=== PATIENT | male | born 1980 | race Caucasian/White ===

== ENCOUNTER → 2017-11-05 | Outpatient (CLI) | payer OTHER ==
[~2017-11-05] VITALS: Ht 210.8 cm; Wt 115.7 kg
[~2017-11-05] MED LIST: HYDROCODONE-AP1 EAC6 PO
--- NOTE | ~2017-11-05 | HPC ---
[facility] [place] [address] PAIN MANAGEMENT CONSULTATION Name: GAYATRI MONTES DE OCA JR Room #: REG [facility].#: [id number] Admission: 11/05/17 Attend Phys: Isra Petit DO Discharge: Date of : 78 Report #: [id number] THIS REPORT FOR: //name// CC: Jacey FELTON DATE OF SERVICE: 11/05/2017 REFERRING PHYSICIAN: Jacey Ramos M.D. CHIEF COMPLAINT: Coccydynia. HISTORY OF PRESENT ILLNESS: As you know, the patient is a 37-year-old male who has a longstanding history of ulcerative colitis requiring multiple surgical procedures. The last surgical procedure left the patient with coccydynia and rectal pain. There have been multiple evaluations with CT examinations but no clear etiology has been found. Despite continued evaluation, Dr. Ramos has been unable to determine the source of symptoms generation. He was referred to our clinic for possible ganglion impar block as this has been effective to treat coccydynic cocaine in the patient's Dr. Ramos's prior. The patient indicates today pain is continuous and rhythmic. He describes the pain as shooting, cramping, aching, sharp, stabbing, places current pain score at 8/10, daily average at 8/10, worst pain has been is 8/10. Nothing appears to exacerbate symptoms except for activities, nothing to date has improved his pain. He states he is nearly debilitated by this ongoing pain "stops him in his tracks." The patient states he is unable to work at his current job due to exacerbation of symptoms due to ongoing pain issues. He has been referred to our service, specifically to trial a ganglion impar blocks to determine if these would improve the patient's ongoing pain before the possibility of a coccygectomy is entertained. PAST MEDICAL HISTORY: Ulcerative colitis and ongoing pelvic pain. PAST SURGICAL HISTORY: 1. Robotic proctectomy with ileoanal J-pouch and diverting loop ileostomy. 2. Robotic lysis of adhesions. 3. Appendectomy. 4. Tonsillectomy. 5. Ileostomy takedown, small bowel resection and primary anastomosis. 6. Ventral hernia repair. SOCIAL HISTORY: The patient smokes half pack tobacco per day and has done so for 25 years. Denies IV or illicit drug use. Admits to occasional alcohol beverage. 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 He is attempting to work but having difficulty continuing work due to pain. He is not receiving workmens [address] [address] PAIN MANAGEMENT CONSULTATION Name: TAVONGAYATRI Cuevas Room #: REG [facility].#: [id number] Admission: 11/05/17 Attend Phys: Isra Petit DO Discharge: Date of : 79 Report #: [id number] compensation nor is he trying to obtain disability benefits. He is not in litigation in regards to his symptoms. He is unaccompanied today. REVIEW OF SYSTEMS: Positive for frequent diarrhea interspersed with constipation, rectal pain, coccydynia and head injury. All other review of systems negative per 12-point review of systems other than those listed in the history of present illness. Pain impact score 52/70 indicating severe interference of daily activities secondary to pain. ALLERGIES: No known drug allergies. CURRENT MEDICATIONS: Hydrocodone 5/325 one tab every 6 hours p.r.n. for pain. IMAGING DATA: 1. CT of the abdomen and pelvis obtained on 10/07/2017 shows status post colectomy, stable from prior exam. No evidence of abscess, perianastomotic fluid collections, small incisional hernia containing only fat unchanged from prior study. Borderline enlarged retroperitoneal mesenteric lymph nodes, unchanged from prior exam and right-sided nephrolithiasis, unobstructive. 2. CT abdomen and pelvis obtained 09/03/2017, status post total colectomy, omental fat containing umbilical hernia, nonobstructing right renal stone, stable shotty mesenteric retroperitoneal and pelvic lymph nodes. 3. CT abdomen and pelvis obtained 05/21/2017 shows a near total resolution of previously seen fluid collection abutting the anastomosis of the small bowel and rectum, probable hepatic steatosis. PHYSICAL EXAMINATION: VITAL SIGNS: Blood pressure 126/79, pulse 100, respiratory rate 20 and unlabored. The patient is 97% on room air, height 6 feet 1 inch tall, weight 255 pounds and BMI calculated 33.7. GENERAL: Well-developed, well-nourished, well-hydrated, 37-year-old male. He appears his stated age, placing current pain score at around 8/10. HEENT: Normocephalic and atraumatic. Pupils equal, round and reactive to light. Extraocular muscles are intact. Sclerae nonicteric without injection. NEUROLOGICAL: Cranial nerves 2 through 12 grossly intact. Speech is fluent. The patient deemed an excellent historian. LUNGS: Clear. No wheeze, rhonchi or rales. CARDIOVASCULAR: Regular. No appreciable gallop or rub. ABDOMEN: Soft, nontender and nondistended. Normoactive bowel sounds. EXTREMITIES: Show no clubbing, no cyanosis and no edema. MUSCULOSKELETAL: There is palpatory tenderness over the coccyx area. Deep palpation area causes intensification of pain. There is also pain, located between the coccyx and the rectum. Deep pressure in this area causes no change in overall pain, no muscle spasming noted and no changes in skin color or [facility] [address] [place] [address] PAIN MANAGEMENT CONSULTATION Name: CRISTHIANGAYATRI Cuevas Room #: REG [facility]#: [id number] Admission: 11/05/17 Attend Phys: Isra Petit DO Discharge: Date of : 79 Report #: [id number] texture. Seated straight leg raising negative. Supine straight leg raising negative. Daniel's test negative. Muscle bulk and tone equal and symmetrical in lower extremities. Ankle clonus negative. Babinski is negative, intact to light touch from L1 through S2 dermatomes. ASSESSMENT: 1. Coccydynia. 2. Chronic rectal pain. PLAN: 1. The patient has been referred to our service by his colorectal surgeon for evaluation for rectal pain. The pain the patient is experiencing at present appears to be directly overlying the coccyx and perineal area. Does not appear to be involving directly the rectum. We discussed with the patient the findings from the CT examination, which showed no changes in the area that would be concerning for any new pathology. I have had experienced with individuals. I have had a fairly extensive surgery and rectal anastomosis with chronic coccydynia pain that has been alleviated to a great degree by ganglion impar blocks. The patient was referred to our clinic specifically for ganglion impar blocks and to discuss other treatment options for pain in the area. We discussed with the patient the following possible treatment options. The patient indicates that he is concerned about taking long-term opioids but does find efficacy with their use. He is concerned that "eating hydrocodone, all day every day" could lead to issues of addiction. He is quite concerned about this and voiced this at least 3 times during our conversation. He is looking for resolution of symptoms. The most rapid way possible as he does need to return to work as he is becoming financially strapped due to the lack of work secondary to ongoing pain. 2. We discussed with the patient that a ganglion impar blocks have shown efficacy with a coccyx and rectal pain in the past. The block of the ganglion impar tends to improve pain generated from the pelvic floor and coccyx area. This is done by blocking the sympathetic drive from the ganglion impar. This could lead to improvement in symptoms, allowing the patient to return to normal function. A typical response to this can be anywhere from a couple days improvement all the way out to months' at a time. Our experience has been anecdotal from other individual suffering from similar problems and this has been an effective treatment option. We discussed the continuation of opioids, though the patient is quite concerned about the use and I do concur with the patient in regards to this. He is a 29-year-old male on increasing the opioid medications, which have a strong potential for addiction in the very near future. Opioids themselves are not necessarily a medication that is benign in nature. The side effects of these medications and the addiction potential are fairly significant with this therapy. I do not recommend this for long-term treatment. 3. We did discuss possibility of belladonna opium suppositories. This could lead to increase analgesia at the local site of pain. The patient was adamant [address] [address] PAIN MANAGEMENT CONSULTATION Name: GAYATRI MONTES DE OCA JR Room #: [facility].#: [id number] Admission: 11/05/17 Attend Phys: Isra E. Damaso, DO Discharge: Date of : 79 Report #: [id number] that he would not be willing to utilize a suppository for ongoing pain. He indicates that this is not an option in his case. 4. We did discuss the possibility of evaluation from a pelvic floor musculature standpoint. This will be done with a professional well versed at the pelvic floor and this could be through physical therapy with an effort at controlling potential muscle spasms of the pelvic floor itself. The patient states he is not willing to undergo this type of treatment as he is unwilling to allow individuals to palpate the pelvic floor through the rectum, which is the only way to effect pelvic floor manipulation. The patient is adamant, he will not allow this to occur as he is concerned about his surgeries and possible complications. 5. The patient was provided refill prescription of hydrocodone 5/325 one tab every 6 hours p.r.n. for pain, I have given the patient #120 one month worth of medication. We have provided this medication to continue analgesic benefit as the patient is going to try to return to work. We are providing this over the next month, so that we can trial the ganglion impar blocks to determine if they are effective and adjust medication therapy is necessary. We are hopeful to have the patient off these medications quickly. 6. The patient was advised that third constitution party payer restrictions require that authorization be obtained before we can move forward with a ganglion impar block. We will begin the process of approvals and once this has been achieved, we will have the patient return to undergo first in a series of ganglion impar blocks in hopes of improving coccydynia and perineal pain. 7. We wish to thank Dr. Ramos for the referral of patient to our clinic. We will keep you apprised of his response to treatment as we address his coccydynic and perineal pain. Again, we wish to thank you for the opportunity to see this patient in consultation. <ELECTRONICALLY SIGNED> By: Isra Petit DO 11/13/17 1216 [id number] Isra Petit DO /nt
[2017-11-05 12:32] VITALS: BP 126/79
== END ==
LOC: PAIN 06:52
DX: M53.3 Sacrococcygeal disorders, not elsewhere classified (principal); K62.89 Other specified diseases of anus and rectum; K51.90 Ulcerative colitis, unspecified, without complications

== ENCOUNTER → 2017-11-26 | Outpatient (CLI) | payer OTHER ==
[~2017-11-26] VITALS: Ht 185.4 cm; Wt 114.3 kg
[~2017-11-26] MED LIST changes: +BELLADONNA-OPI1 EACH RECTAL; +HYDROCODON-ACE1 EAC5 PO; +HYDROCODONE-AP1 EA11 PO; +HYSINGLA ER30 MG PO
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
[2017-11-26 08:45] VITALS: BP 132/95
== END ==
LOC: PAIN 11-13 11:11
DX: M53.3 Sacrococcygeal disorders, not elsewhere classified (principal); K62.89 Other specified diseases of anus and rectum; Z87.19 Personal history of other diseases of the digestive system

== ENCOUNTER → 2017-12-24 | Outpatient (CLI) | payer OTHER ==
[~2017-12-24] VITALS: Ht 185.4 cm; Wt 114.9 kg
--- NOTE | ~2017-12-24 | HPC ---
[facility] [place] [address] PAIN MANAGEMENT CONSULTATION Name: GAYATRI MONTES DE OCA JR Room #: REG [facility].#: [id number] Admission: 12/24/17 Attend Phys: Isra Petit DO Discharge: Date of : 79 Report #: [id number] THIS REPORT FOR: //name// CC: Jacey GRANADOS DATE OF SERVICE: 12/24/2017 REFERRING PHYSICIAN: Jacey Ramos MD PRIMARY CARE: ROBERT[facility] oPlk CHIEF COMPLAINT: Coccydynia and rectal pain. HISTORY OF PRESENT ILLNESS: As you know, the patient is a 37-year-old male with longstanding history of ulcerative colitis, requiring multiple surgical procedures. Last procedure left the patient with coccydynia and rectal pain. We saw the patient per the request of Dr. Jacey Ramos for a possible ganglion impar block. This was not approved by the patient's third democrat payer. They indicated this was an experimental procedure. We have seen great efficacy with these injections in the past, but unfortunately, this patient was not allowed to trial this type of injection. We subsequently started the patient on medication management in the form of hydrocodone and belladonna. The patient is reporting improvement in symptoms with this medication, reporting pain score about 6/10. States pain is exacerbated with activity and walking, improves with medications. He describes the pain as stabbing in sensation. He returns today in followup visit for medication management. He is denying any side effects with the therapy at this time. ALLERGIES: No known drug allergies. CURRENT MEDICATIONS: Hydrocodone 7.5/325 four times a day, belladonna opium 16.2/30 mg 1 per rectum per day, Hysingla ER 30 mg 1 tab per day. SOCIAL HISTORY: The patient continues to smoke half pack tobacco per day and has done so for 25 years. Denies IV or illicit drug use. Has an occasional alcohol beverage. 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 IMAGING: No new imaging available. PQRS: The patient does not suffer from osteoarthritis or rheumatoid arthritis. His pain intensity is 6/10 involving rectum and coccyx area. He is not a fall risk. He does not use a device for ambulation. He is not on blood thinners. [address] [address] PAIN MANAGEMENT CONSULTATION Name: GAYATRI MONTES DE OCA JR [facility] [id number] Admission: 12/24/17 Attend Phys: Isra Petit DO Discharge: Date of : 79 Report #: [id number] He does not have a history of hypertension. He has not been on opioid therapy for greater than 6 weeks with our services. He has signed an opioid contract. Risk assessment tool is low for opioid abuse. Functional assessment tool reveals 32/70, moderate interference of daily activities secondary to pain. PHYSICAL EXAMINATION: VITAL SIGNS: Blood pressure 123/73, pulse 91, respiratory rate 16, unlabored. The patient is 95% on room air. Height 6 feet 1 inch tall, weight 253.4 pounds, BMI calculated 33.4. GENERAL: Well-developed, well-nourished, well-hydrated 37-year-old male. He appears stated age. He is placing pain score today 6/10. HEENT: Normocephalic, atraumatic. Pupils equal, round, reactive to light. EXTREMITIES: Show no clubbing, no cyanosis, no edema. MUSCULOSKELETAL: There is palpatory tenderness over the coccyx area. No rash, lesions or ulcerations. No skin color changes. Pain is elicited with standing and walking distances as well as climbing a single step stool. Seated straight leg raising negative. Supine straight leg raising negative. Daniel's test negative. ASSESSMENT: 1. Rectal pain. 2. Chronic coccydynia. 3. Chronic intractable pain. PLAN: 1. The patient returns today in followup visit having received some benefit with the belladonna in combination with hydrocodone. The patient is requesting refill on medications as he does find benefit with their use. He states that increasing activity at work, standing and walking long distances exacerbates his symptoms. He returns today in followup visit for refills of medication for the next month. 2. The patient was provided prescription of Hysingla ER 30 mg dose 1 tab p.o. q. day, given the patient #30 tablets, no refills. I did provide the patient with a coupon to reduce the cost of the Hysingla. 3. The patient was provided a prescription of hydrocodone 7.5/325 one tab p.o. q. 6 hours p.r.n. for pain, #120, releases of today only, no refills. 4. The patient was provided prescription of belladonna opium suppositories, 1 suppository per day, 16.2 mg/30 mg, #30, no refills. 5. We will see the patient back in followup visit in 1 month. At that time, discuss the efficacy of the medication and determine if continuation of this therapy would be recommended. <ELECTRONICALLY SIGNED> By: Isra Petit DO 01/01/18 1131 [id number] Isra Petit DO /linn
[2017-12-24 08:23] VITALS: BP 123/73
== END ==
LOC: PAIN 07:09
DX: K62.89 Other specified diseases of anus and rectum (principal); G89.29 Other chronic pain; M53.3 Sacrococcygeal disorders, not elsewhere classified; F17.200 Nicotine dependence, unspecified, uncomplicated

== ENCOUNTER → 2018-01-14 | Outpatient (CLI) | payer OTHER ==
[~2018-01-14] VITALS: Ht 185.4 cm; Wt 112.9 kg
--- NOTE | ~2018-01-14 | HPC ---
[facility] [place] [address] [address] PAIN MANAGEMENT CONSULTATION Name: GAYATRI MONTES DE OCA JR [id number] Admission: 01/14/18 Attend Phys: Isra Petit DO Discharge: Date of : 78 Report #: [id number] THIS REPORT FOR: //name// CC: Jacey EFLTON DATE OF SERVICE: 01/14/2018 CHIEF COMPLAINT: Coccydynia and rectal pain. HISTORY OF PRESENT ILLNESS: As you know, the patient is a 37-year-old male with longstanding history of ulcerative colitis requiring multiple surgical procedures. Last procedure left the patient unfortunately with ongoing coccydynia and perirectal pain. The patient sought evaluation and treatment through his colorectal surgeon and ultimately referred to our clinic to discuss options for interventional treatments. The patient was seen in consultation per the request of Dr. Ramos on 11/05/2017. At that time, we were requesting the patient undergo ganglion impar block. It was determined by his third republican payer that this was an experimental procedure. The patient was started on medication therapy in the form of Hysingla, hydrocodone and belladonna opium suppositories. The patient initially received good benefit with these medications, but unfortunately has noted lack of efficacy over the past couple of weeks. He is now taking hydrocodone consistently, he is taking his Hysingla consistently and utilizing the suppositories and despite these treatments, his pain now at a level of 9/10. The patient returns to discuss options for treatment. ALLERGIES: No known drug allergies. CURRENT MEDICATIONS: Opium belladonna once a day, hydrocodone 7.5/325 one tab every 6 hours, Hysingla ER 30 mg once a day. SOCIAL HISTORY: The patient continues to smoke half pack tobacco per day. He has done so for 25 years. Denies IV or illicit drug use. Admits to occasional alcohol beverage. 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 He is working, not receiving workmen's compensation. He is unaccompanied at today's visit. IMAGING: No imaging available. PQRS: The patient does not have osteoarthritis, rheumatoid arthritis. His pain score today is at 9/10. He is not a fall risk, has not had a fall in 3 months. He is not on blood thinners. He is on opioids, but not under contract. He does not have a history of hypertension. He is a smoker. He has a low opioid abuse potential. Pain assessment tool is now 45/70. [place] [address] PAIN MANAGEMENT CONSULTATION Name: GAYATRI MONTES DE OCA JR [facility]: [facility] [id number] Admission: 01/14/18 Attend Phys: Isra Petit DO Discharge: Date of : 79 Report #: [id number] PHYSICAL EXAMINATION: VITAL SIGNS: Blood pressure 144/92, pulse 85, respiratory rate 16 and unlabored. The patient is 97% on room air, height 6 feet 1 inch tall, weight 248.8 pounds, BMI calculated at 32.8. GENERAL: Well-developed, well-nourished, well-hydrated 37-year-old male appearing stated age, placing pain score anywhere from 4-9/10. HEENT: Normocephalic, atraumatic. Pupils equal, round, reactive to light. Extraocular muscles are intact. EXTREMITIES: Show no clubbing, no cyanosis, no edema. MUSCULOSKELETAL: Seated straight leg raising negative, supine straight leg raising negative. ARMIN test negative. There is palpatory tenderness over the coccyx area. ASSESSMENT: 1. Coccydynia. 2. Rectal pain. 3. Chronic intractable pain. PLAN: 1. The patient returns today in followup visit, describing increasing pain despite escalating doses of opioids. I am very concerned with a 37-year-old male patient that he has beginning to experience tolerance to opioid medications. The fact that he is noticing no improvement despite escalating doses of medications is quite concerning. The patient states he is taking his medications appropriately and despite this his pain has continued. We will make adjustments in medication today, but have discussed the possibility the patient may have to look toward surgical options as his third republican payer will not approve the requested injection that his colorectal surgeon actually sent the patient here for us to perform. 2. The patient will be continued on Hysingla at 30 mg dose 1 tab p.o. q.a.m. I have given the patient #30 releases of today, 4 weeks from today, 8 weeks from today, 3 months' worth of medication. 3. The patient was provided a prescription for belladonna opium suppositories. I have given the patient 1 suppository per day. He is given a prescription of #30, releases of today, 4 weeks from today, 8 weeks from today. I did offer to the patient if he can find a 3-month prescription it may be more cost effective. I did offer the patient the prescription for #90 of the belladonna and opium suppositories if this is a cheaper alternative for the patient. 4. The patient will have escalation in his hydrocodone from 7.5 to 10/325, the top dose of hydrocodone, this places the patient now at 70 morphine equivalents a day, reaching the top level recommended by CDC. I am very concerned that this patient will ultimately show tolerance to this higher level of opioids and thus they will be become ineffective. 5. I have discussed with the patient there is a strong possibility he may have to look toward surgical options such as a coccygectomy to assist in his coccydynic pain. This will not improve his rectal pain. We also discussed he [facility] [address] [place] [address] PAIN MANAGEMENT CONSULTATION Name: GAYATRI MONTES DE OCA JR Room #: [facility] [id number] Admission: 01/14/18 Attend Phys: Isra Petit DO Discharge: Date of : 78 Report #: [id number] could look towards contacting his third republican payer and requesting the ganglion impar block. I did advise the patient his third republican payer indicates this is an experimental procedure, which is quite interesting as it has been used for years for coccydynia and has never been indicated as an experimental procedure. It is unfortunate that the third republican payer in this case has not reviewed the available literature in regards to this treatment option for chronic coccydynia and rectal pain. The patient can contact his third republican payer and discuss this with them. We have made attempts to have this approved and have been rejected. I have also requested the patient to follow up with his colorectal surgeon as I believe this is the reason why the patient was sent to our clinic. He was to trial these injections and we have not been able to do so due to restrictions, not from a medical standpoint, but from an insurance standpoint. 6. The patient will return to our clinic in about 3 months unless he can achieve authorization to undergo the requested ganglion impar block. <ELECTRONICALLY SIGNED> By: Isra Petit DO 01/15/18 0717 1417 14 Isra Petit DO /nt
[2018-01-14 09:32] VITALS: BP 144/92
== END ==
LOC: PAIN 07:02
DX: M53.3 Sacrococcygeal disorders, not elsewhere classified (principal); K62.89 Other specified diseases of anus and rectum; G89.29 Other chronic pain

== ENCOUNTER → 2018-07-15 | Outpatient (CLI) | payer OTHER ==
[~2018-07-15] VITALS: Ht 185.4 cm; Wt 110.9 kg
--- NOTE | ~2018-07-15 | HPC ---
[facility] [place] [address] PAIN MANAGEMENT CONSULTATION Name: GAYATRI MONTES DE OCA JR Room #: REG [facility] Khari#: [id number] Admission: 07/15/18 Attend Phys: Isra Petit DO Discharge: Date of : 79 Report #: [id number] THIS REPORT FOR: //name// CC: Jacey FELTON Physician staff DATE OF SERVICE: 07/15/2018 REFERRING PHYSICIAN: Jacey Ramos M.D. CHIEF COMPLAINT: Coccydynia/rectal pain. HISTORY OF PRESENT ILLNESS: As you know, the patient is a very pleasant 37-year-old male with longstanding history of ulcerative colitis, requiring multiple surgical procedures. Last procedure unfortunately left the patient with coccydynia and perirectal pain. He has been started on medication management in the form of Hysingla and hydrocodone for pain control. 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 He returns requesting refill on medications. He is denying any side effects of medication except for some issues of GI that he is dealing with vaot-iiy-dttgven medications. He returns today in followup visit requesting a refill on medications, denying any other side effects to the therapy. He states that the medications do provide benefit of about 60%-70%. We attempted originally to have the patient undergo a ganglion impar blocks per the request of his colorectal surgeon, but unfortunately this was not approved by his insurer. He continues on medication in the form of Hysingla and hydrocodone. ALLERGIES: No known drug allergies. CURRENT MEDICATIONS: Hysingla 30 mg once a day, hydrocodone 10/325 one tab p.o. q. 6 hours p.r.n. for pain. SOCIAL HISTORY: The patient continues to smoke half pack tobacco per day and has done so for 25-1/2 years. Denies IV or illicit drug use. Admits to occasional alcohol beverage. 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 IMAGING DATA: No new imaging available. PHYSICAL EXAMINATION: VITAL SIGNS: Blood pressure 135/89, pulse 86 and respiratory rate 16 and unlabored. The patient is 98% on room air, height 6 feet 1 inch tall, weight 244.4 pounds and BMI calculated 32.3. GENERAL: Well-developed, well-nourished and well-hydrated 37-[place] [address] PAIN MANAGEMENT CONSULTATION Name: TAVONGAYATRI Mason LEHMAN Room #: REG [facility]#: [id number] Admission: 07/15/18 Attend Phys: Isra Petit DO Discharge: Date of : 79 Report #: [id number] appearing stated age, placing current pain score at approximately 6/10. HEENT: Normocephalic and atraumatic. Pupils equal, round and reactive to light. EXTREMITIES: Show no clubbing, no cyanosis and no edema. MUSCULOSKELETAL: There is some palpatory tenderness over the coccyx area. No tender points. Weightbearing causes minor change in the patient's perirectal pain and coccydynia. Seated position causes intensification of pain nor neurologic deficits noted in the lower extremities. ASSESSMENT: 1. Chronic coccydynia. 2. Chronic rectal pain. 3. Chronic intractable pain. 4. Opioid dependency. 5. Tobacco habituation. PLAN: 1. The patient has returned today in followup visit for medication management. He feels medications are working beneficially, providing about 60% improvement in overall symptoms. He has requested refill on medications at this time. He has been appropriate with his medication. We have done K-TRACS and MO-TRACS. There is no aberrant entries in the file. He appears to be filling his medications appropriately. He has requested refill of medications and we have agreed to provide 3 months' worth of therapy today. 2. The patient was provided prescription of Hysingla 30 mg dose 1 tab p.o. q.a.m., #30 releases of today, 4 weeks from today, 8 weeks from today, 3 months' worth of medication. 3. The patient was provided prescription of hydrocodone 10/325 one tab p.o. q. 6 hours p.r.n. for pain, #120, releases of today, 4 weeks from today, 8 weeks from today, 3 months' worth of medication. 4. We reviewed the fact that opiate medications are being used to provide analgesia adequate to support activities of daily living, not attempting to achieve a specific pain score on the 0-10 Visual Analog Scale. The current opiate medications are providing sufficient analgesia to allow the patient to participate in activities of daily living. The patient is not exhibiting any aberrant behavior suggestive of drug diversion. The patient is not having any adverse reactions to medications. The patient is not suffering from daytime somnolence or mental acuity changes. The patient is managing opiate-induced constipation with appropriate yhxl-sxp-thxrami agents and dietary considerations. The patient was counseled on concern for caution with operating a motor vehicle while using opiate medications. A physical exam was performed and the patient's functional status was evaluated. All patients with back pain were advised against the bed rest greater than 4 days and were advised to return to normal activities. Pain score assessment was noted and the treatment plan was reviewed with the patient. All current [facility] [address] [place] [address] PAIN MANAGEMENT CONSULTATION Name: GAYATRI MONTES DE OCA JR Room #: REG [facility]#: [id number] Admission: 07/15/18 Attend Phys: Isra Petit DO Discharge: Date of : 79 Report #: [id number] medications, both prescribed and OTC were reviewed and reconciled on the electronic medical record. Tobacco screening was accomplished and smoking cessation was advised when indicated. BMI was noted and diet/exercise modification was recommended for all patients following outside normal parameters. I reviewed with the patient today their responsibilities to safeguard prescription medications, reviewed their responsibility to utilize medications only as prescribed by the physician. They are to seek and receive pain medications only from 1 physician group ( [facility]). They are to use 1 pharmacy and keep the clinic informed if they change pharmacies. Their responsibilities include making followup visits in a timely fashion and to avoid abrupt discontinuation of medication usage. Their responsibilities further include bringing their medications (bottles from the pharmacy with residual pills) to the visit for possible confirmation of pill counts and the patient understands it is their responsibility to submit to random drug screens to ensure both that the medications prescribed are present, and that no other controlled substances are present. All prescriptions provided today were generated electronically. 5. The patient will submit to urine drug screen today. This is part of our screening process. The patient can find results in 1 week to 2 weeks. They will be available here at the clinic if he requests. We will review the findings. Again, this is part of our opioid monitoring process with opioid contracts. 6. The patient will return to our clinic in 3 months for medication therapy and discuss other options for treatment. <ELECTRONICALLY SIGNED> By: Isra Petit DO 07/17/18 0816 0848 [id number] Isra ePtit DO /nt
[2018-07-15 08:11] VITALS: BP 135/89
== END ==
LOC: PAIN 06:53
DX: M53.3 Sacrococcygeal disorders, not elsewhere classified (principal); G89.4 Chronic pain syndrome; F11.20 Opioid dependence, uncomplicated; F17.200 Nicotine dependence, unspecified, uncomplicated

== ENCOUNTER → 2018-10-15 | Outpatient (CLI) | payer OTHER ==
[~2018-10-15] VITALS: Ht 185.4 cm; Wt 109.8 kg
--- NOTE | ~2018-10-15 | HPC ---
[facility] [address] [address] PAIN MANAGEMENT CONSULTATION Name: GAYATRI MONTES DE OCA JR Room #: [facility].#: [id number] Admission: 10/15/18 Attend Phys: Isra Petit DO Discharge: Date of : 79 Report #: [id number] THIS REPORT FOR: //name// CC: Jacey FELTON Physician staff DATE OF SERVICE: 10/15/2018 CHIEF COMPLAINT: Coccydynia and rectal pain. HISTORY OF PRESENT ILLNESS: As you know, the patient is a 38-year-old male with longstanding history of ulcerative colitis requiring multiple surgical procedures. Last procedure unfortunately left the patient with coccydynia and perirectal pain. He has been started on medication management in the form of Hysingla along with the use of immediate release formulation hydrocodone for pain control. He states the combination of medications is working beneficially allowing him to go about his activities of daily living without significant pain interference. The patient travels significantly for his job and was recently in the [place] area where he attempted to receive refills of medication, was unable to do so due to state loss. Unfortunately, the patient will need to schedule his medication refills appropriately, so he can receive the medications here in the [place], [place] area. He returns today in followup visit requesting refill of medications. He is placing pain at around 6/10. He reports about 60% improvement in overall pain with medications. ALLERGIES: No known drug allergies. CURRENT MEDICATIONS: Hysingla 30 mg once a day, hydrocodone/acetaminophen 10/325 one tab every 6 hours p.r.n. for pain. SOCIAL HISTORY: The patient continues to smoke half a pack tobacco per day, has done so for 26 years. Denies IV or illicit drug use. Admits to occasional alcohol beverage. 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 IMAGING: No new imaging available. PHYSICAL EXAMINATION: VITAL SIGNS: Blood pressure 141/83, pulse 82, respiratory rate 16 and unlabored. The patient is 96% on room air, height 6 feet 1 inch tall, weight 242 pounds, BMI calculated 31.9. GENERAL: Well-developed, well-nourished, well-hydrated, 37-year-old male. He appears stated age, placing current pain score 6/10. HEENT: Normocephalic, atraumatic. Pupils equal, round, [place] [address] PAIN MANAGEMENT CONSULTATION Name: TAVONGAYATRI Cuevas Room #: REG [facility].#: [id number] Admission: 10/15/18 Attend Phys: Isra Petit DO Discharge: Date of : 79 Report #: [id number] EXTREMITIES: Show no clubbing, no cyanosis, no edema. MUSCULOSKELETAL: Palpatory tenderness over the coccyx area. Multiple tender points, no incisional changes noted. Weightbearing causes no change in overall perirectal pain or coccydynia. Seated position causes increase in overall pain, no neurologic deficits noted. ASSESSMENT: 1. Chronic coccydynia. 2. Chronic rectal pain. 3. Chronic intractable pain. 4. Opioid dependency. 5. Complicated medication management. 6. Tobacco habituation. PLAN: 1. The patient returns today in followup visit for medication management. He states medications are working beneficially for pain control, providing about 60% improvement in overall pain. Unfortunately, he has had some difficulty obtaining these medications and states where he has been traveling to work. I advised the patient, he will need to coordinate refill times to fit with his current work schedule as state laws vary on who will fill and who will not fill these medications. He will need to adjust his travel to accommodate for these issues. 2. The patient and I had a very long discussion today about tobacco use and its effect on chronic pain. I have advised the patient that there have been direct links between tobacco use and chronic pain facilitation. We recommend the patient discontinue this activity as quickly as possible. We have offered to the patient treatment options. He will consider these options. At present, he is not interested in discontinuing this activity. 3. The patient was provided a prescription of Hysingla 30 mg dose 1 tab per day. This was released today, 4 weeks from today, 8 weeks from today, 3 months' worth of medication. This totals 30 morphine equivalents a day. 4. The patient was provided prescription of hydrocodone 10/325 one tab p.o. q.6h. p.r.n. for pain, I have given the patient #120, releasing today, 4 weeks from today, 8 weeks from today. This totals to maximum of 40 morphine equivalents a day in combination with the Hysingla to 70 morphine equivalents a day, below CDC's recommended no more than 90 morphine equivalents. 5. We will see the patient back in followup visit in 3 months. At that time, we are hopeful we can adjust medications to a lower dose depending on CDC's recommended guidelines. <ELECTRONICALLY SIGNED> By: Isra Petit DO 10/21/18 1110 0801 1102 Isra Petit DO /nt
[2018-10-15 09:11] VITALS: BP 141/83
== END ==
LOC: PAIN 06:33
DX: M53.3 Sacrococcygeal disorders, not elsewhere classified (principal); G89.29 Other chronic pain; F17.200 Nicotine dependence, unspecified, uncomplicated; Z79.899 Other long term (current) drug therapy; Z79.891 Long term (current) use of opiate analgesic

== ENCOUNTER → 2019-01-07 | Outpatient (CLI) | payer OTHER ==
[~2019-01-07] VITALS: Ht 185.4 cm; Wt 115.8 kg
[2019-01-07 09:20] VITALS: BP 147/95
--- NOTE | 2019-01-07 09:35 | NUR ---
Pain Clinic Assessment: 1. History of Osteoarthritis: Not Applicable History of Rheumatoid Arthritis: Not Applicable 2. Height: 6 ft. 1 in. 185.4 cm. Weight: 255.2 lb. oz. 115.758 kg. Patient's BMI: 33.7 3. Vital Signs: BP: 147/95 Pulse: 82 Resp: 16 Temp: 02 Sat: 97 ECG Mon: 4. Pain Intensity: 7 5. Fall Risk: Dizziness: N Needs help standing or walking: N Fallen in the last 3 months: N Fall risk comments: 6. Patient on Blood Thinner: None 7. History of Hypertension: N 8. Opioid Therapy greater than 6 weeks: Y Opiate Contract Signed: 12/24/17 9. Risk Assessment Tool Provided: LOW RISK 0/3 10. Functional Assessment Tool: 11. Recreational Drug Use: Never Drug Type: Tobacco Use: Current Every Day Smoker Tobacco Type: Cigarettes Amount or Packs/day: 0.5 How Many Years: 20 Alcohol Use: No Frequency: Quant:
--- NOTE | 2019-01-08 08:34 | HPC ---
[facility] [address] [place] [address] PAIN MANAGEMENT CONSULTATION Name: GAYATRI MONTES DE OCA JR Room #: REG CATE Lucia#: [id number] Admission: 01/07/19 Attend Phys: Peyton Ceballos Discharge: Date of : 78 Report #: [id number] THIS REPORT FOR: //name// CC: Peyton FELTON Physician staff DATE OF SERVICE: 01/07/2019 CHIEF COMPLAINT: Coccydynia and rectal pain. HISTORY OF PRESENT ILLNESS: This is a 38-year-old male with a longstanding history of ulcerative colitis with surgery procedures that has left him with some perirectal pain and coccydynia. The patient tells me that the pain is worse when he is walking and carrying ladders, going up and down for his job. He tells me his pain today is 7/10, which is fairly average pain score. He tells me that Hysingla does work well. Occasionally, he can take 2 hydrocodone 10/325 a day but sometimes he requires up to 5 a day. 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 He denies any problems with constipation or daytime sleepiness. He does tell me that he will be having a hernia surgery on February [address] Robert. ALLERGIES: No known drug allergies. MEDICATIONS: Hysingla ER 30 mg daily and hydrocodone 10/325 up to 4 times a day as needed. PQRS: 1. He denies any history of osteoarthritis or rheumatoid arthritis. 2. Height is 6 feet 1 inch, weight is 255 and BMI is 33. 3. Vital signs: Blood pressure 147/95, pulse is 82, respirations 16 and oxygen sat is 97%. Pain score is 7/10. 4. Denies dizziness. Does not need help walking or standing. Has not fallen in the last 3 months. 5. The patient is not on any blood thinners or antihypertensive medicines. 6. Opioid therapy is greater than 6 weeks; therefore, an opioid signed contract is on the chart. 7. His risk assessment tool is low. His functional assessment is 52/70. 8. Recreational drug use, he denies. He currently smokes about a half a pack a day. He does not drink any alcohol. We did check the prescription monitoring system. The patient is filling appropriately for his medications, slightly early on his refill today but has difficulty making appointments due to work issues and traveling. There is a drug screen on his chart within the past year. PHYSICAL EXAMINATION: [facility] [address] [place] [address] PAIN MANAGEMENT CONSULTATION Name: GAYATRI MONTES DE OCA JR [facility] #: [facility] [id number] Admission: 01/07/19 Attend Phys: Peyton Ceballos Discharge: Date of : 78 Report #: [id number] GENERAL: This is a well-developed, well-nourished, well hydrated 38-year-old gentleman who appears his stated age. Placing his pain score at 7/10 today. HEENT: Normocephalic and atraumatic. Pupils equal, round and reactive to light. EXTREMITIES: Show no clubbing, no cyanosis and no edema. MUSCULOSKELETAL: Complains of tenderness in his coccyx area. Weightbearing causes no additional pain, but the patient tells me climbing a ladder does seated position also increase his pain. The patient does walk with a normal gait. ASSESSMENT AND PLAN: Chronic coccydynia, chronic rectal pain, chronic intractable pain, opioid dependency, complex medical management under terms of written opioid agreement and tobacco habituation. PLAN: 1. I discussed treatment options with the patient today. He tells me the pain medicines are very beneficial for him, able to work 12 hours a day, sometimes occasionally 7 days a week. He tells me some days he takes 2 medicines of his breakthrough pain pills depending on his workload and other days, he requires 5 pills. I had a discussion with him regarding Dr. Petit had talked about possibly decreasing his medications today. The patient was unhappy about this. He tells me he does not understand why if he is functioning and able to work why we would need to decrease them. I did go over the CDC guidelines with him and they want everyone to be at 50 MME eventually. Currently, this patient falls at 70 morphine mEq a day. I did talk with Dr. Petit. He agreed to keep him where he is at currently. We may need to decrease him in the future, possibly changing his hydrocodone to 7.5/325, which would be a decrease in his medicines but still allow him 4 tablets a day if he needs them. The patient verbalizes understanding, though he was not happy with this decision that if we do need to decrease him in the future. 2. Scripts given for Hysingla 30 mg 1 tablet a day, quantity 30 to release for today and 4-week; second medication, hydrocodone 10/325, #120 to be released today and 4-week. The patient will now be seen every 2 months based to the CDC guidelines and our clinic guidelines of below 90 MME seen every 2 months. 3. The patient tells me he is having a hernia repair, surgery on February 11. I encouraged him to decrease his hydrocodone use or stop it altogether before his surgery, so therefore, he will have better pain control postoperatively since Dr. Ramos is not allowed to give him narcotics due to his contract that he has signed here. The patient will continue his Hysingla dose when he is trying to decrease his medications prior to surgery. The patient verbalizes understanding. [facility] [address] [place] [address] PAIN MANAGEMENT CONSULTATION Name: GAYATRI MONTES DE OCA JR Room #: REG [facility] [id number] Admission: 01/07/19 Attend Phys: Peyton Ceballos Discharge: Date of : 78 Report #: [id number] 4. The patient will be seen in followup in 2 months' time. Seen in the collaboration today under Dr. Isra Petit. <ELECTRONICALLY SIGNED> By: Peyton Ceballos 01/08/19 0834 [id number] Peyton Ceballos /nt
== END ==
LOC: PAIN 06:57
DX: M53.3 Sacrococcygeal disorders, not elsewhere classified (principal); K62.89 Other specified diseases of anus and rectum; G89.4 Chronic pain syndrome; F17.220 Nicotine dependence, chewing tobacco, uncomplicated; Z79.899 Other long term (current) drug therapy; Z79.891 Long term (current) use of opiate analgesic

== ENCOUNTER → 2019-03-11 | Outpatient (CLI) | payer OTHER ==
[~2019-03-11] VITALS: Ht 185.4 cm; Wt 107.9 kg
[2019-03-11 09:10] VITALS: BP 123/80
--- NOTE | 2019-03-11 09:28 | NUR ---
Pain Clinic Assessment: 1. History of Osteoarthritis: Not Applicable History of Rheumatoid Arthritis: Not Applicable 2. Height: 6 ft. 1 in. 185.4 cm. Weight: 237.8 lb. oz. 107.866 kg. Patient's BMI: 31.4 3. Vital Signs: BP: 123/80 Pulse: 100 Resp: 16 Temp: 02 Sat: 97 ECG Mon: 4. Pain Intensity: 6-7 5. Fall Risk: Dizziness: N Needs help standing or walking: N Fallen in the last 3 months: N Fall risk comments: 6. Patient on Blood Thinner: None 7. History of Hypertension: N 8. Opioid Therapy greater than 6 weeks: Y Opiate Contract Signed: 12/24/17 9. Risk Assessment Tool Provided: LOW RISK 0/3 10. Functional Assessment Tool: 11. Recreational Drug Use: Never Drug Type: Tobacco Use: Current Every Day Smoker Tobacco Type: Amount or Packs/day: How Many Years: Alcohol Use: No Frequency: Quant:
--- NOTE | 2019-03-12 16:32 | HPC ---
[facility] [address] [address] PAIN MANAGEMENT CONSULTATION Name: GAYATRI MONTES DE OCA JR Room #: REG CATE Lucia#: [id number] Admission: 03/11/19 ������������������ Attend Phys: Peyton Ceballos Discharge: ������������������ Date of : 78 Report #: [id number] THIS REPORT FOR: //name// CC: Peyton FELTON Physician staff DATE OF SERVICE: 03/11/2019 CHIEF COMPLAINT: Coccydynia and rectal pain. HISTORY OF PRESENT ILLNESS: This is a 38-year-old gentleman with a longstanding history of ulcerative colitis and surgeries that have left him with some perirectal and coccydynia pain. He continues to take narcotics for this and has been trying to taper down his medication. He tells me that he did have a hernia repair done on 02/11/2019. While he was in the hospital, he developed some sepsis and had pneumonia. He was in the hospital for about 8 days at [facility]. He tells me he is finally feeling a little bit better. It has been almost a month since this episode. Today, his pain is mostly in his tailbone and occasionally in his right hernia repair area. He rates his pain today at a 6/7, worse with activity, walking and stairs. Medication and heat are very helpful. He tells me that he has started physical therapy going 2 times a week to strengthen his core. He believed this will help with his hernia pain as well as it strengthen his lower back, which should make working better for him with less pain. He would like a refill of his medications today. ALLERGIES: No known drug allergies. CURRENT MEDICATIONS: Hysingla 30 mg daily, hydrocodone 10/325 up to 4 times a day. PQRS: 1. He denies a history of osteoarthritis or rheumatoid arthritis. 2. Height is 6 feet, weight is 237, BMI is 31. This is a decrease from 255 and I believe being hospitalized has caused this decrease. 3. Vital signs: 123/80, pulse is 100, respirations 16, oxygen sat is 97. 4. Pain score is 6-7. 5. Denies dizziness. Does not need help walking or standing. Has not fallen in the last 3 months. 6. The patient is not on any blood thinners or any medicine for hypertension. 7. Opioid therapy is greater than 6 weeks. Therefore, an opiates signed contract is on the chart. 8. Risk assessment tool is low. Functional assessment is 52/70. 10. Recreational drug use, he denies. He is a current smoker of tobacco and he does not use alcohol. [address] [address] PAIN MANAGEMENT CONSULTATION Name: GAYATRI MONTES DE OCA Room #: REG [facility] [id number] Admission: 03/11/19 ������������������ Attend Phys: Peyton Ceballos Discharge: ������������������ Date of : 78 Report #: [id number] PHYSICAL EXAMINATION: GENERAL: This is a well-developed, well nourished, well hydrated 38-year-old gentleman who appears his stated age, placing his pain score today as 6/7. HEENT: Normocephalic, atraumatic. Pupils equal, round and reactive to light. EXTREMITIES: No clubbing, no cyanosis, no edema. MUSCULOSKELETAL: Complains of tenderness in his coccyx area as well as in his right lower quadrant. The patient walks with a normal gait. His lower extremity strength judged to be 5/5 bilaterally and symmetrical. ASSESSMENT: 1. Chronic coccydynia. 2. Chronic rectal pain. 3. Chronic intractable pain. 4. Opioid dependency. 5. Complex medical management under written opioid agreement. We reviewed the fact that opiate medications are being used to provide analgesia adequate to support activities of daily living, not attempting to achieve a specific pain score on the 0-10 Visual Analog Scale. The current opiate medications are providing sufficient analgesia to allow the patient to participate in activities of daily living. The patient is not exhibiting any aberrant behavior suggestive of drug diversion. The patient is not having any adverse reactions to medications. The patient is not suffering from daytime somnolence or mental acuity changes. The patient is managing opiate-induced constipation with appropriate pegb-xdz-jlvqmha agents and dietary considerations. The patient was counseled on concern for caution with operating a motor vehicle while using opiate medications. A physical exam was performed and the patient's functional status was evaluated. All patients with back pain were advised against the bed rest greater than 4 days and were advised to return to normal activities. Pain score assessment was noted and the treatment plan was reviewed with the patient. All current medications, both prescribed and OTC were reviewed and reconciled on the electronic medical record. Tobacco screening was accomplished and smoking cessation was advised when indicated. BMI was noted and diet/exercise modification was recommended for all patients following outside normal parameters. I reviewed with the patient today their responsibilities to safeguard prescription medications, reviewed their responsibility to utilize medications only as prescribed by the physician. They are to seek and receive pain medications only from 1 physician group ([facility]). They are to use 1 pharmacy and keep the clinic informed if they change pharmacies. Their responsibilities include making followup visits in a timely fashion and to avoid abrupt discontinuation of medication usage. Their responsibilities further include bringing their medications (bottles from the pharmacy with residual [address] [address] PAIN MANAGEMENT CONSULTATION Name: GAYATRI MONTES DE OCA JR Room #: REG [facility]#: [id number] Admission: 03/11/19 ������������������ Attend Phys: Peyton Ceballos Discharge: ������������������ Date of : 78 Report #: [id number] pills) to the visit for possible confirmation of pill counts and the patient understands it is their responsibility to submit to random drug screens to ensure both that the medications prescribed are present, and that no other controlled substances are present. All prescriptions provided today were generated electronically. PLAN: 1. We discussed treatment options with the patient today. The patient tells me that he is recently recovering from a hernia surgery in which he was hospitalized for 8 days. The patient's weight has been decreased since this and he has been off work. He has just recently started physical therapy to strengthen his core. I encouraged him to continue his therapy and even after he has finished, to do those exercises at home. 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 2. We did discuss his medications. The patient tells me before he had his hernia surgery, he was trying to decrease his hydrocodone. Some days he did not take any, some days he took two, other days he had to take 5 of his breakthrough hydrocodone pills. He continuously took his Hysingla on a daily basis. I explained to him that we will eventually taper his medicines as we had discussed previously. Today, we will keep him on his Hysingla 30 mg daily and hydrocodone 10/325 up to 4 times a day with an MME of 70 morphine milliequivalents. 3. The plan will be to decrease him in 2 months to hydrocodone 7.5/325, #120. This will decrease him to 60 morphine milliequivalents and we will be able to give him 3 months of medications. The patient is agreeable with this plan. 4. I did also discuss in the future that we would possibly decrease his Hysingla to 20s, keep him at 4 of his hydrocodone a day and continue to taper as we are able every few months. This way, they would decrease the use of narcotics over the long run and hopefully prevent any withdrawal symptoms. The patient is agreeable with this plan of care. He would like to be able to get off his medicine if he is able. 5. The patient did fill a prescription from Dr. Ramos after his surgery, which he informed us before his surgery that he may need 1 postoperatively. He was only given 30 pills and did not take all of them following his surgery. 6. The patient will be seen in 2 months' time period. He is seen today under collaboration with Dr. Isra Petit. ��������������������������������������������� <ELECTRONICALLY SIGNED> ���������������������������������������� By: Peyton Ceballos ��������������������������������������������� 03/12/19 1632 [id number] Peyton Ceballos /nt
== END ==
LOC: PAIN 06:54
DX: K62.89 Other specified diseases of anus and rectum (principal); M53.3 Sacrococcygeal disorders, not elsewhere classified; G89.4 Chronic pain syndrome; Z79.891 Long term (current) use of opiate analgesic; Z79.899 Other long term (current) drug therapy

== ENCOUNTER → 2019-05-05 | Outpatient (CLI) | payer OTHER ==
[~2019-05-05] VITALS: Ht 185.4 cm; Wt 106.8 kg
[2019-05-05 10:53] VITALS: BP 121/87
--- NOTE | 2019-05-05 11:03 | NUR ---
Pain Clinic Assessment: 1. History of Osteoarthritis: Not Applicable History of Rheumatoid Arthritis: Not Applicable 2. Height: 6 ft. 1 in. 185.4 cm. Weight: 235.4 lb. oz. 106.777 kg. Patient's BMI: 31.1 3. Vital Signs: BP: 121/87 Pulse: 93 Resp: 14 Temp: 02 Sat: 97 ECG Mon: 4. Pain Intensity: 6 5. Fall Risk: Dizziness: N Needs help standing or walking: N Fallen in the last 3 months: N Fall risk comments: 6. Patient on Blood Thinner: None 7. History of Hypertension: N 8. Opioid Therapy greater than 6 weeks: Y Opiate Contract Signed: 12/24/17 9. Risk Assessment Tool Provided: LOW RISK 0/3 10. Functional Assessment Tool: 11. Recreational Drug Use: Never Drug Type: Tobacco Use: Current Every Day Smoker Tobacco Type: Amount or Packs/day: How Many Years: Alcohol Use: No Frequency: Quant:
--- NOTE | 2019-05-13 12:17 | HPC ---
[facility] [address] [place] [address] PAIN MANAGEMENT CONSULTATION Name: GAYATRI MONTES DE OCA JR Room #: REG CATE Lucia#: [id number] Admission: 05/05/19 ������������������ Attend Phys: Isra Petit DO Discharge: ������������������ Date of : 78 Report #: [id number] THIS REPORT FOR: //name// CC: Jacey FELTON Physician staff DATE OF SERVICE: 05/05/2019 REFERRING PHYSICIAN: Jacey Ramos M.D. CHIEF COMPLAINT: Chronic coccydynia and rectal pain. HISTORY OF PRESENT ILLNESS: As you know, the patient is a 38-year-old male with longstanding history of ulcerative colitis requiring surgical procedures that left him with perirectal pain and coccydynia. The patient was referred to our clinic to undergo treatment with injections around the ganglion impar to potentially resolve the patient's coccydynia and even assist with rectal pain. We have yet to receive authorization for the patient to undergo the procedure. We will attempt again to begin the authorization process. He does return today in followup visit requesting medication management. He is currently on Hysingla 30 mg once a day for baseline pain control and use hydrocodone p.r.n. up to 4 a day for pain, breakthrough while at work. 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 He returns for refill of medications and to begin the process in hopes of undergoing ganglion impar block. ALLERGIES: No known drug allergies. CURRENT MEDICATIONS: Hysingla 30 mg p.o. q.a.m. and hydrocodone/acetaminophen 10/325 one tab every 6 hours p.r.n. pain. SOCIAL HISTORY: The patient continues to smoke half pack tobacco per day, has done so for 27 years. Denies IV or illicit drug use. Admits to occasional alcohol beverage. He is employed. 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 IMAGING DATA: No new imaging available. PHYSICAL EXAMINATION: VITAL SIGNS: Blood pressure 121/87, pulse 93 and respiratory rate 14 and unlabored. The patient is 97% on room air. Height 6 feet 1 inch tall, weight 235.4 pounds and BMI calculated 31.1. GENERAL: Well-developed, well-nourished and well-hydrated 38-year-old male, [place] [address] PAIN MANAGEMENT CONSULTATION Name: TAVONGAYATRI Cuevas Room #: REG [facility]#: [id number] Admission: 05/05/19 ������������������ Attend Phys: Isra Petit DO Discharge: ������������������ Date of : 78 Report #: [id number] appearing stated age. Pain is rated around 6/10. HEENT: Normocephalic and atraumatic. Pupils equal, round and reactive to light. EXTREMITIES: Show no clubbing, no cyanosis and no edema. MUSCULOSKELETAL: Lower extremity strength is symmetrical 5/5. Pain is elicited with standing from a seated position. He was sitting on a hard chair. There is some palpatory tenderness over the coccyx area. ASSESSMENT: 1. Chronic rectal pain. 2. Chronic coccydynia. 3. Chronic intractable pain. 4. Opioid dependency. PLAN: 1. The patient has returned today in followup visit requesting in a process of beginning to gain authorization to undergo a ganglion impar block for which the patient was referred to our clinic nearly 2 years ago. We have yet to obtain this authorization as we have been advised that third democrat feels that this is an experimental procedure. The patient was sent to our clinic to undergo this option of treatment by his colorectal surgeon as the patient was not improving from his coccydynic pain. It was thought that the patient's symptoms would improve and has been noted to be improved in other patients who have undergone this procedure with similar findings and physical exam. We will begin the authorization process once again and determine if the patient can undergo the coccyx injection requested by his colorectal surgeon. 2. We have provided the patient with refill of his Hysingla and hydrocodone dosing. The following was provided in written form for the patient today with releasing of today and 4 weeks from today, 2 months' worth of medication. 3. We reviewed the fact that opiate medications are being used to provide analgesia adequate to support activities of daily living, not attempting to achieve a specific pain score on the 0-10 Visual Analog Scale. The current opiate medications are providing sufficient analgesia to allow the patient to participate in activities of daily living. The patient is not exhibiting any aberrant behavior suggestive of drug diversion. The patient is not having any adverse reactions to medications. The patient is not suffering from daytime somnolence or mental acuity changes. The patient is managing opiate-induced constipation with appropriate bwbx-[id number] agents and dietary considerations. The patient was counseled on concern for caution with operating a motor vehicle while using opiate medications. A physical exam was performed and the patient's functional status was evaluated. All patients with back pain were advised against the bed rest greater than 4 days and were advised to return to normal activities. Pain score assessment was noted and the treatment plan was reviewed with the patient. All current medications, both prescribed and OTC were reviewed and reconciled on the [address] [address] PAIN MANAGEMENT CONSULTATION Name: GAYATRI MONTES DE OCA Room #: REG [facility].#: [id number] Admission: 05/05/19 ������������������ Attend Phys: Isra Petit DO Discharge: ������������������ Date of : 78 Report #: [id number] electronic medical record. Tobacco screening was accomplished and smoking cessation was advised when indicated. BMI was noted and diet/exercise modification was recommended for all patients following outside normal parameters. I reviewed with the patient today their responsibilities to safeguard prescription medications, reviewed their responsibility to utilize medications only as prescribed by the physician. They are to seek and receive pain medications only from 1 physician group ( [facility]). They are to use 1 pharmacy and keep the clinic informed if they change pharmacies. Their responsibilities include making followup visits in a timely fashion and to avoid abrupt discontinuation of medication usage. Their responsibilities further include bringing their medications (bottles from the pharmacy with residual pills) to the visit for possible confirmation of pill counts and the patient understands it is their responsibility to submit to random drug screens to ensure both that the medications prescribed are present, and that no other controlled substances are present. All prescriptions provided today were generated electronically. 4. The patient was provided prescription of Hysingla ER 30 mg dose 1 tab p.o. q.a.m., #30 releasing today and 4 weeks from today, 2 months' worth of medication. 5. The patient was provided prescription of hydrocodone 10/325 one tab p.o. q. 6 hours p.r.n. for pain, I have given the patient #120, releasing today and 4 weeks from today, 2 months' worth of medication. 6. The patient is looking into the possibility of going on to disability as his symptoms have not improved. I have advised the patient that this would not provide any further improvement in symptoms and would likely lead to a decrease income thus having to make changes in his lifestyle. He is considering this option but is hopeful that he can keep his job but with his continued rectal pain and coccydynic symptoms. He cannot perform his duties effectively. 7. We will attempt authorization for a ganglion impar block for the patient per the request of his colorectal surgeon. We will keep the patient apprised of our progress. ��������������������������������������������� <ELECTRONICALLY SIGNED> ���������������������������������������� By: Isra Petit DO ��������������������������������������������� 05/13/19 1217 [id number] [id number] Isra Petit DO /nt
== END ==
LOC: PAIN 06:40
DX: M53.3 Sacrococcygeal disorders, not elsewhere classified (principal); K62.89 Other specified diseases of anus and rectum; G89.29 Other chronic pain; Z79.899 Other long term (current) drug therapy

== ENCOUNTER → 2019-07-01 | Outpatient (CLI) | payer OTHER ==
[~2019-07-01] VITALS: Ht 185.4 cm; Wt 106.7 kg
[2019-07-01 08:39] VITALS: BP 132/90
--- NOTE | 2019-07-01 08:41 | NUR ---
Pain Clinic Assessment: 1. History of Osteoarthritis: Not Applicable History of Rheumatoid Arthritis: Not Applicable 2. Height: 6 ft. 1 in. 185.4 cm. Weight: 235.2 lb. oz. 106.686 kg. Patient's BMI: 31.0 3. Vital Signs: BP: 132/90 Pulse: 94 Resp: 16 Temp: 02 Sat: 100 ECG Mon: 4. Pain Intensity: 6-7 5. Fall Risk: Dizziness: N Needs help standing or walking: N Fallen in the last 3 months: N Fall risk comments: 6. Patient on Blood Thinner: None 7. History of Hypertension: N 8. Opioid Therapy greater than 6 weeks: Y Opiate Contract Signed: 12/24/17 9. Risk Assessment Tool Provided: LOW RISK 0/3 10. Functional Assessment Tool: 11. Recreational Drug Use: Never Drug Type: Tobacco Use: Current Every Day Smoker Tobacco Type: Cigarettes Amount or Packs/day: 1/2 PACK How Many Years: Alcohol Use: No Frequency: Quant:
--- NOTE | 2019-07-07 15:47 | HPC ---
[facility] [place] [address] PAIN MANAGEMENT CONSULTATION Name: GAYATRI MONTES DE OCA JR Room #: REG [facility] [place].#: [id number] Admission: 07/01/19 Attend Phys: Isra Petit DO Discharge: Date of : 78 Report #: [id number] THIS REPORT FOR: //name// CC: Jacey FELTON Physician staff DATE OF SERVICE: 07/01/2019 CHIEF COMPLAINT: Coccydynia and rectal pain. HISTORY OF PRESENT ILLNESS: As you know, patient is a 38-year-old male with longstanding history of ulcerative colitis with surgical procedures that left him with perirectal pain and coccydynia. He has been following with [facility] per the request of Dr. Jacey Ramos as no further surgical interventions can provide benefit from a pain standpoint. 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 The patient was originally referred to our clinic by his colorectal surgeon to undergo. The patient indicates that he now has a patient advocate who has contacted him indicating that he now has clearance to undergo ganglion impar block that they have approved at least a trial version of this injection to determine if his symptoms will improve. As indicated, the patient was originally sent for this injection by Dr. Jacey Ramos on our first visit of 11/05/2017. He returns today in followup visit requesting refill of medications. He is going now to plan the ganglion impar block for the next couple of weeks as he needs to establish time off to be able to recover from the procedure and to allow the procedure to reach its greatest potential efficacy. Today, the patient reports pain at a level of 6-7/10. States it is chronic in nature, stabbing in sensation, exacerbated with activities, walking stairs, improves with medications, heat, cold compresses and repositioning. ALLERGIES: No known drug allergies. CURRENT MEDICATIONS: Hysingla 30 mg once a day, hydrocodone/acetaminophen 10/325 1 tab p.o. q. 6 hours p.r.n. for pain. SOCIAL HISTORY: The patient continues to smoke half pack tobacco per day, he has done so for 26 years. Denies IV or illicit drug use. Admits occasional alcohol beverage. He is currently employed as a [employer]ight. He is working, not receiving workmen's compensation, unaccompanied to date. IMAGING: No new imaging available. PHYSICAL EXAMINATION: [facility] [address] [place] [address] PAIN MANAGEMENT CONSULTATION Name: GAYATRI MONTES DE OCA JR Room #: [facility]#: [id number] Admission: 07/01/19 Attend Phys: Isra Petit DO Discharge: Date of : 78 Report #: [id number] VITAL SIGNS: Blood pressure 132/90, pulse 94, respiratory rate 16 and unlabored. The patient is 100% on room air, height 6 feet 1 inch tall, weight 235.2 pounds, BMI calculated 31.0. GENERAL: Well-developed, well-nourished, well-hydrated 38-year-old male appearing stated age, pain is rated today about 6-7/10. HEENT: Normocephalic, atraumatic. Pupils equal, round, reactive to light. EXTREMITIES: Show no clubbing, no cyanosis, and no edema. MUSCULOSKELETAL: There again remains palpatory tenderness over the coccyx area. Multiple tender points. No specific trigger points, incisional areas are noted and well healed. Seated straight leg raising negative. Supine straight leg raising negative. Farooq's test is negative. ASSESSMENT: 1. Chronic coccydynia. 2. Chronic rectal pain. 3. Chronic intractable pain. 4. Opioid dependency. 5. Complicated medication management utilizing scheduled medications. 6. Tobacco habituation. PLAN: 1. The patient returns today in followup visit indicating that he has received approval to undergo ganglion impar block per the request of Dr. Jacey Ramos, when we initially met the patient at 11/05/2017. At that time, we were attempting to gain authorization to undergo this requested procedure to determine if his symptoms can improve with this type of injection. We have now finally gained approval per the patient's report. We have not received this confirmation. He wishes to schedule the appointment in the next couple of weeks as he does wish to have the day of the procedure and the day after the procedure off to recover from that procedure, but also to remain relatively sedentary potentially improving the efficacy of the injection itself. We will schedule the patient at his earliest convenience to undergo the procedure. He will need to clear the work schedule, so that he can recover for those 2 days prior to procedure. We will accommodate the patient as much as we can. We are hopeful that the proposed injection will provide the patient with good benefit allowing us to wean him off opioid medications if at all possible. 2. ____. 3. The patient was provided prescription of Hysingla 30 mg dose 1 tab p.o. every day, this is for the baseline pain control. I have given the patient #30 tablets, releasing today and 4 weeks from today, 2 months' worth of medication. 4. The patient was provided prescription of hydrocodone 10/325 1 tab p.o. q. 6 hours p.r.n. for pain. I have given the patient #120 to take on an as needed basis. He is not to take the medication prophylactically. He was given releases today and 4 weeks from today, 2 months' worth of medication. 5. The patient, as you are aware, is taking opioid medication for pain control. His total morphine equivalents 70 morphine equivalents based on the 4 [facility] [address] [place] [address] PAIN MANAGEMENT CONSULTATION Name: GAYATRI MONTES DE OCA JR [facility] [id number] Admission: 07/01/19 Attend Phys: Isra Petit DO Discharge: Date of : 78 Report #: [id number] hydrocodone a day along with the baseline Hysingla. This is at the higher end of the CDC's recommended guidelines for opioid medications. We are monitoring the patient closely. He has not shown any concerning signs of addiction or misuse of medication. We have run a PDMP of the patient and he has shown no aberrant entries within the PDMP concerning of shopping for medications or receiving prescriptions from multiple sources. 6. We will see the patient back in followup visit once he has a chance to schedule the ganglion impar block. PLAN: He will contact our clinic in the next day or two to make that scheduled procedure. We will keep you apprised of his response. <ELECTRONICALLY SIGNED> By: Isra Petit DO 07/07/19 1547 [id number] Isra Petit DO /linn
== END ==
LOC: PAIN 06:47
DX: K62.89 Other specified diseases of anus and rectum (principal); M53.3 Sacrococcygeal disorders, not elsewhere classified; G89.4 Chronic pain syndrome; F11.20 Opioid dependence, uncomplicated; Z79.899 Other long term (current) drug therapy

== ENCOUNTER → 2019-09-02 | Outpatient (CLI) | payer OTHER ==
[~2019-09-02] VITALS: Ht 185.4 cm; Wt 109.2 kg
[~2019-09-02] MED LIST changes: +PROBIOTIC1 EAC2 PO
[2019-09-02 08:21] VITALS: BP 143/100
--- NOTE | 2019-09-02 08:30 | NUR ---
Pain Clinic Assessment: 1. History of Osteoarthritis: Not Applicable History of Rheumatoid Arthritis: Not Applicable 2. Height: 6 ft. 1 in. 185.4 cm. Weight: 240.8 lb. oz. 109.226 kg. Patient's BMI: 31.8 3. Vital Signs: BP: 143/100 Pulse: 80 Resp: 16 Temp: 02 Sat: 99 ECG Mon: 4. Pain Intensity: 6 5. Fall Risk: Dizziness: N Needs help standing or walking: N Fallen in the last 3 months: N Fall risk comments: 6. Patient on Blood Thinner: None 7. History of Hypertension: N 8. Opioid Therapy greater than 6 weeks: Y Opiate Contract Signed: 12/24/17 9. Risk Assessment Tool Provided: LOW RISK 0/3 10. Functional Assessment Tool: 11. Recreational Drug Use: Never Drug Type: Tobacco Use: Current Every Day Smoker Tobacco Type: Amount or Packs/day: How Many Years: Alcohol Use: No Frequency: Quant:
--- NOTE | 2019-09-08 08:01 | HPC ---
[facility] [place] [address] PAIN MANAGEMENT CONSULTATION Name: GAYATRI MONTES DE OCA JR Room #: REG [facility]#: [id number] Admission: 09/02/19 Attend Phys: Isra Petit DO Discharge: Date of : 78 Report #: [id number] THIS REPORT FOR: //name// CC: Jacey FELTON Physician staff DATE OF SERVICE: 09/02/2019 REFERRING PHYSICIAN: Jacey Ramos MD. CHIEF COMPLAINT: Coccydynia and rectal pain. HISTORY OF PRESENT ILLNESS: As you know, the patient is a very pleasant 39-year-old male who returns today in followup visit for medication management. We had planned to have the patient undergo ganglion impar block to address his coccydynic pain and had received precertification for the patient to undergo the procedure. Unfortunately, he was called out of town to do some work during the timeframe given and was unable to undergo the procedure. He wishes to pursue reauthorization of this injection, but is also requesting refill of medications today. He states pain at the level of 6/10, exacerbated with activity, walking, and stairs, improves with medications, heat, cold compresses and repositioning. He denies new injury or trauma that may have caused continuation of pain. He returns for refill of medications and to begin the process of reauthorization of the ganglion impar block that we had scheduled for 08/27/2019. ALLERGIES: No known drug allergies. CURRENT MEDICATIONS: Hysingla 30 mg once a day, hydrocodone/acetaminophen 10/325 one tablet every 6 hours p.r.n. for pain. SOCIAL HISTORY: The patient continues to smoke about a half pack per day and has done so for 26 years. Denies IV or illicit drug use. Admits to occasional alcohol beverage. He is employed, working, not receiving workmen's compensation, unaccompanied today. IMAGING: No new imaging available. PHYSICAL EXAMINATION: VITAL SIGNS: Blood pressure 143/100, pulse is 80, respiratory rate 16 and unlabored. The patient is 99% on room air, height 6 feet 1 inch tall, weight 240 pounds, BMI calculated 31.8. GENERAL: Well-developed, well-nourished, well-hydrated 39-year-old male appearing stated age. He is placing current pain score at approximately 6/10. HEENT: Normocephalic, atraumatic. Pupils equal, round, reactive to light. [address] [address] PAIN MANAGEMENT CONSULTATION Name: ANA PAULASKYGAYATRI Mason LEHMAN Room #: REG [facility]#: [id number] Admission: 09/02/19 Attend Phys: Isra Petit DO Discharge: Date of : 78 Report #: [id number] Speech fluent. The patient deemed an excellent historian. EXTREMITIES: Show no clubbing, no cyanosis, and no edema. MUSCULOSKELETAL: Again, palpatory tenderness noted over the coccyx area. Multiple tender points, no specific trigger points were once again identified. The incisions are well-healed over the area from surgery. Seated straight leg raising remains negative. Supine straight leg raising negative. Pain is elicited with seated position, also with ambulation longer than 25 feet. ASSESSMENT: 1. Chronic coccydynia. 2. Rectal pain. 3. Opioid dependency. 4. Complicated medication management utilizing scheduled medications. 5. Tobacco habituation. 6. Chronic intractable pain. PLAN: 1. The patient returns today in followup visit indicating that he missed his last appointment to undergo the ganglion impar block due to unforeseeable issues. He was called out of town for work and was unable to attend the injection planned for 08/27/2019. Unfortunately, this was the timeframe we had for the patient to undergo the procedure. We will have to begin authorization once again to determine if we can undergo the procedure. We will begin this prior authorization process immediately. I did advise the patient we will contact him once we have this authorization to begin scheduling the treatment. Hopefully, we will have that authorization in the next couple of days. 2. We reviewed the fact that opiate medications are being used to provide analgesia adequate to support activities of daily living, not attempting to achieve a specific pain score on the 0-10 Visual Analog Scale. The current opiate medications are providing sufficient analgesia to allow the patient to participate in activities of daily living. The patient is not exhibiting any aberrant behavior suggestive of drug diversion. The patient is not having any adverse reactions to medications. The patient is not suffering from daytime somnolence or mental acuity changes. The patient is managing opiate-induced constipation with appropriate [id number] agents and dietary considerations. The patient was counseled on concern for caution with operating a motor vehicle while using opiate medications. A physical exam was performed and the patient's functional status was evaluated. All patients with back pain were advised against the bed rest greater than 4 days and were advised to return to normal activities. Pain score assessment was noted and the treatment plan was reviewed with the patient. All current medications, both prescribed and OTC were reviewed and reconciled on the electronic medical record. Tobacco screening was accomplished and smoking cessation was advised when indicated. BMI was noted and diet/exercise modification was recommended for all patients following outside normal [address] [address] PAIN MANAGEMENT CONSULTATION Name: GAYATRI MONTES ED OCA JR Room #: REG [facility]#: [id number] Admission: 09/02/19 Attend Phys: Isra Petit DO Discharge: Date of : 78 Report #: [id number] parameters. I reviewed with the patient today their responsibilities to safeguard prescription medications, reviewed their responsibility to utilize medications only as prescribed by the physician. They are to seek and receive pain medications only from 1 physician group ( [facility]). They are to use 1 pharmacy and keep the clinic informed if they change pharmacies. Their responsibilities include making followup visits in a timely fashion and to avoid abrupt discontinuation of medication usage. Their responsibilities further include bringing their medications (bottles from the pharmacy with residual pills) to the visit for possible confirmation of pill counts and the patient understands it is their responsibility to submit to random drug screens to ensure both that the medications prescribed are present, and that no other controlled substances are present. All prescriptions provided today were generated electronically. 3. The patient was provided prescription of Hysingla ER 30 mg dose 1 tablet p.o. q.a.m. I have given the patient #30 tablets, releasing now and 4 weeks from today, 2 months' worth of medication. 4. The patient was provided prescription of hydrocodone 10/325 one tablet every 6 hours p.r.n. for pain, #120, releasing now and 4 weeks from today, 2 months' worth of medication. 5. We will see the patient back in followup visit once we have achieved authorization for him to undergo ganglion impar block to address his coccydynia and rectal pain per the request of his colorectal surgeon. Hopefully, we will have this authorization quickly. We will see him back in 2 months for medication management. <ELECTRONICALLY SIGNED> By: Isra Petit DO 09/08/19 0801 1048 0029 Isra Petit DO /nt
== END ==
LOC: PAIN 06:56
DX: M53.3 Sacrococcygeal disorders, not elsewhere classified (principal); K62.89 Other specified diseases of anus and rectum; F11.20 Opioid dependence, uncomplicated; G89.4 Chronic pain syndrome; F17.200 Nicotine dependence, unspecified, uncomplicated

== ENCOUNTER → 2019-09-11 | Outpatient (CLI) | payer OTHER ==
[~2019-09-11] VITALS: Ht 185.4 cm; Wt 111.6 kg
[2019-09-11 07:56] VITALS: BP 131/82
--- NOTE | 2019-09-15 08:01 | HPC ---
[facility] [place] [address] PAIN MANAGEMENT CONSULTATION Name: GAYATRI MONTES DE OCA JR Room #: REG [facility].#: [id number] Admission: 09/11/19 Attend Phys: Isra Petit DO Discharge: Date of : 78 Report #: [id number] THIS REPORT FOR: //name// CC: Jacey FELTON Physician staff DATE OF SERVICE: 09/11/2019 CHIEF COMPLAINT: Coccydynia and chronic rectal pain. HISTORY OF PRESENT ILLNESS: As you know, the patient is a 39-year-old male who returns today in followup visit having received precertification to undergo the requested ganglion impar block per the colorectal surgeon's request upon our initial referral. It has taken an extended period of time to get this approval, but we now have this approval to undergo the procedure. He is placing pain score 6/10. States pain is exacerbated with activity, walking and climbing stairs as well as sitting for long periods of time. Medication, heat and cold compresses repositioning and distraction tends to work for improving pain. He returns today to undergo the first in a series of requested ganglion impar blocks. ALLERGIES: No known drug allergies. CURRENT MEDICATIONS: Hydrocodone 10/325 one tab every 6 hours p.r.n. for pain, Hysingla 30 mg once a day, lactobacillus 1 tab per day. SOCIAL HISTORY: The patient reports no changes in social history. PHYSICAL EXAMINATION: VITAL SIGNS: Blood pressure 131/82, pulse 73, respiratory rate 18 and unlabored. The patient is 98% on room air, height 6 feet 1 inch tall, weight 246 pounds, BMI calculated 32.5. GENERAL: Well-developed, well-nourished, well-hydrated 39-year-old male appearing stated age, pain is rated around 6/10. HEENT: Normocephalic, atraumatic. Pupils equal, round, reactive to light. EXTREMITIES: Show no clubbing, no cyanosis, and no edema. MUSCULOSKELETAL: Palpatory tenderness noted over the coccyx area. No specific trigger points were identified. Seated straight leg raising negative. Supine straight leg raising negative. ASSESSMENT: 1. Chronic coccydynia. 2. Chronic rectal pain. 3. Opioid dependency. [address] [address] PAIN MANAGEMENT CONSULTATION Name: GAYATRI MONTES DE OCA Room #: REG [facility]#: [id number] Admission: 09/11/19 Attend Phys: Isra Petit DO Discharge: Date of : 78 Report #: [id number] 4. Complicated medication management utilizing scheduled medications. 5. Chronic intractable pain. PLAN: 1. The patient returns today in followup visit having received precertification to undergo ganglion impar block per the request of Dr. Jacey Ramos, the patient's colorectal surgeon. We have achieved authorization for the patient to undergo the procedure today. He has been advised risks and benefits of the procedure. These risks include but are not necessarily limited to bleeding, bruising, infection, worsening pain, no relief of pain, also risk of temporary or permanent muscle weakness, temporary or permanent nerve damage, possible paralysis and . The patient states understood and wished to proceed. 2. No medication changes made at today's visit. The patient will continue current medical therapy as prior prescribed. 3. We will see the patient back in followup visit on an as needed basis for possible next in a series of ganglion impar blocks. PROCEDURE NOTE DESCRIPTION OF PROCEDURE: Ganglion impar block under fluoroscopic guidance. After obtaining written consent, the patient was taken back to fluoroscopy suite, placed in prone position with pillow under the pelvis to increase the pelvic positioning. The area of the sacrum and coccyx was prepped and draped with chlorhexidine. A sterile marker was then placed over the junction of the sacrum and coccyx. AP and lateral views were obtained with the fluoroscope. The area overlying the sacrococcygeal ligament was then anesthetized with 3 mL of 1% lidocaine utilizing a 27-gauge 1-1/4 inch needle. A 25-gauge 2-inch needle was advanced under fluoroscopic guidance towards the sacrococcygeal ligament. The ligament was engaged and lateral imaging was obtained. In lateral fluoroscopic view, the needle was advanced through the sacrococcygeal ligament to the anterior surface of the sacrum and coccyx. After negative aspiration for heme, 1 mL of Omnipaque was injected demonstrating excellent anterior spread of the medication upon the coccyx and sacral area. After negative aspiration for heme, 5 mL of a solution containing 1 mL, 80 mg per mL, 80 mg total Depo-Medrol along with 4 mL bupivacaine 0.5% injected slowly. Needle then retracted approximately half way, flushed with 1 mL of 1% lidocaine, then removed. A sterile bandage was then placed over injection site. The patient was able to move all 4 extremities after procedure. The patient tolerated procedure well, carefully escorted to recovery room in [address] [address] PAIN MANAGEMENT CONSULTATION Name: GAYATRI MONTES DE OCA JR Room #: REG [facility]#: [id number] Admission: 09/11/19 Attend Phys: Isra Petit DO Discharge: Date of : 78 Report #: [id number] stable condition. After meeting discharge criteria, the patient discharged home. <ELECTRONICALLY SIGNED> By: Isra Petit DO 09/15/19 0801 0832 [id number] Isra Petit DO /nt
== END | disposition home or self-care (01) ==
LOC: PAIN 09-09 09:56
DX: M53.3 Sacrococcygeal disorders, not elsewhere classified (principal); K62.89 Other specified diseases of anus and rectum; G89.29 Other chronic pain; F11.20 Opioid dependence, uncomplicated; F17.200 Nicotine dependence, unspecified, uncomplicated; Z98.890 Other specified postprocedural states; Z79.899 Other long term (current) drug therapy

== ENCOUNTER → 2019-11-03 | Outpatient (CLI) | payer OTHER ==
[~2019-11-03] VITALS: Ht 185.4 cm; Wt 113.3 kg
[2019-11-03 09:52] VITALS: BP 145/88
--- NOTE | 2019-11-03 10:11 | NUR ---
Pain Clinic Assessment: 1. History of Osteoarthritis: DENIES History of Rheumatoid Arthritis: DENIES 2. Height: 6 ft. 1 in. 185.4 cm. Weight: 249.8 lb. oz. 113.309 kg. Patient's BMI: 33.0 3. Vital Signs: BP: 145/88 Pulse: 88 Resp: 16 Temp: 02 Sat: 97 ECG Mon: 4. Pain Intensity: 7 5. Fall Risk: Dizziness: N Needs help standing or walking: N Fallen in the last 3 months: N Fall risk comments: 6. Patient on Blood Thinner: None 7. History of Hypertension: N 8. Opioid Therapy greater than 6 weeks: Y Opiate Contract Signed: 12/24/17 9. Risk Assessment Tool Provided: LOW RISK 0/3 10. Functional Assessment Tool: 11. Recreational Drug Use: Never Drug Type: Tobacco Use: Current Every Day Smoker Tobacco Type: Cigarettes Amount or Packs/day: 0.5 How Many Years: 20 Alcohol Use: No Frequency: Weekly Quant: SOCIAL
--- NOTE | 2019-11-04 09:09 | HPC ---
[facility] [address] [place] [address] PAIN MANAGEMENT CONSULTATION Name: CRISTHIANGAYATRI Mason LEHMAN Room #: REG [facility]#: [id number] Admission: 11/03/19 Attend Phys: Peyton Ceballos Discharge: Date of : 78 Report #: [id number] THIS REPORT FOR: //name// CC: Peyton POLLACK DATE OF SERVICE: 11/03/2019 CHIEF COMPLAINT: Coccydynia and chronic rectal pain. HISTORY OF PRESENT ILLNESS: This is a 39-year-old gentleman who returned to the pain clinic today for refill of his medications that he uses to help treat his ongoing tailbone and coccydynia pain. He reports he recently had his ganglion impar block by Dr. Isra Petti in August, he found that it was at least 80% effective for a week, then the pain has gradually returned back to his normal level of a 7/10. He does report during the time period that the injection was beneficial that he was able to take less of his short-acting opioids. He did continue on his long-acting Hysingla, as he has been prescribed. Our goal as well as his is to be able to decrease his medications by trying these injections. The first one was beneficial as reported at 80% improvement. We will seek authorization for another injection since that was beneficial per his report. The patient today reports that his tailbone pain is back to a 7/10. It is a stabbing, aching pain that is worse at the end of the day after working and going up ladders and stairs. His medications are very beneficial with minimal constipation and no somnolence from his medications, heat and repositioning is also helpful. ALLERGIES: No known drug allergies. CURRENT LIST OF MEDICATIONS: Hysingla ER 30 mg daily, hydrocodone 10/325 two to four tablets per day p.r.n. and probiotic. PQRS: 1. He denies any rheumatoid or osteoarthritis. 2. Height is 6 feet 1 inch, weight is 249, BMI is 33. 3. Vital signs: 145/88, pulse is 88, respirations 16, oxygen sat is 97. 4. Pain score is 7/10. 5. Denies dizziness, does not need help walking or standing, has not fallen in the last 3 months. 6. The patient is not on any blood thinners or medicines for hypertension. 7. Opioid therapy is greater than 6 weeks; therefore, an opioid signed contract [address] [address] PAIN MANAGEMENT CONSULTATION Name: GAYATRI MONTES DE OCA JR Room #: REG [facility]#: [id number] Admission: 11/03/19 Attend Phys: Peyton Ceballos Discharge: Date of : 78 Report #: [id number] is on the chart. 8. Risk assessment tool is low. 9. Functional assessment is 52/70. 10. Recreational drug use, he denies. He is a current smoker about half a pack a day and does not drink alcohol. According to the prescription monitoring system, the patient is due to fill his hydrocodone today. He is not due for a refill of his Hysingla, but he fills them in a timely fashion only by Dr. Isra Petit. There is a recent drug screen on the chart that is appropriate as well. The patient reports he does safeguard his meds at all times. PHYSICAL EXAMINATION: GENERAL: This is alert and orientated, well-nourished 39-year-old gentleman who appears his stated age, placing his current pain score at 7/10. HEENT: Normocephalic, atraumatic. Pupils equal, round and reactive to light. EXTREMITIES: No clubbing, no cyanosis, no edema. MUSCULOSKELETAL: He has palpable tenderness over his coccyx area. Seated straight leg raising is negative. Lower extremity strength judged to be 5/5 in all major muscle groups. No specific trigger points are noted in his coccyx area. IMPRESSION: 1. Chronic coccydynia. 2. Chronic rectal pain. 3. Chronic intractable pain. 4. Opioid dependency. 5. Tobacco habituation. 6. Complicated medical management utilizing scheduled medications. PLAN: 1. We discussed treatment options with the patient today. The patient found the ganglion impar block was helpful for at least 7 days, it improved his pain by at least 80%. He was able to increase his function during that week and also take less opioid medications. We will seek authorization for another ganglion impar block under the direction of Dr. Isra Petit. The patient reports he is unable to have this done this year, which we have 2 weeks left because he will be working 12-hour shifts. He would like us to seek authorization for November. He will continue with his same insurance. 2. When we have authorization, we will schedule this on a Saturday, so the patient was able to be off work and recover for several days again after the injection. Hopefully, this will give him more prolonged benefit and able to wean down on his opioid medication. 3. Today, the patient was provided with a script for Hysingla 30 mg 1 tablet every day for his baseline and hydrocodone 10/325 one every 6 hours #120 to take as needed. Scripts given today for these medications and for 4-week refills. [address] [address] PAIN MANAGEMENT CONSULTATION Name: TAVONGAYATRI Mason LEHMAN Room #: [facility]#: [id number] Admission: 11/03/19 Attend Phys: Peyton Ceballos Discharge: Date of : 78 Report #: [id number] They were sent electronically to his pharmacy. 4. We discussed trying to decrease his smoking. The patient understands that he needs to try to decrease his cigarette usage. He will try to do this over the next few months. He reports that it is hard when his pain is elevated. It is a stress relieving mechanism for him. 5. The patient is seen in collaboration today with Dr. Isra Petit. <ELECTRONICALLY SIGNED> By: Peyton Ceballos 11/04/19 0909 [id number] Peyton Ceballos /linn
== END ==
LOC: PAIN 10-28 07:07
DX: M53.3 Sacrococcygeal disorders, not elsewhere classified (principal); K62.89 Other specified diseases of anus and rectum; G89.4 Chronic pain syndrome; F11.20 Opioid dependence, uncomplicated

== ENCOUNTER → 2019-12-25 | Outpatient (CLI) | payer OTHER ==
[~2019-12-25] VITALS: Ht 185.4 cm; Wt 108.9 kg
[2019-12-25 07:39] VITALS: BP 142/99
--- NOTE | 2019-12-25 07:45 | NUR ---
Pain Clinic Assessment: 1. History of Osteoarthritis: DENIES History of Rheumatoid Arthritis: DENIES 2. Height: 6 ft. 1 in. 185.4 cm. Weight: 240.0 lb. oz. 108.864 kg. Patient's BMI: 31.7 3. Vital Signs: BP: 142/99 Pulse: 82 Resp: 14 Temp: 02 Sat: ECG Mon: 4. Pain Intensity: 6 5. Fall Risk: Dizziness: N Needs help standing or walking: N Fallen in the last 3 months: N Fall risk comments: 6. Patient on Blood Thinner: None 7. History of Hypertension: N 8. Opioid Therapy greater than 6 weeks: Y Opiate Contract Signed: 12/24/17 9. Risk Assessment Tool Provided: LOW RISK 0/3 10. Functional Assessment Tool: 11. Recreational Drug Use: Never Drug Type: Tobacco Use: Current Every Day Smoker Tobacco Type: Amount or Packs/day: How Many Years: Alcohol Use: No Frequency: Quant:
--- NOTE | 2019-12-30 13:51 | HPC ---
[facility] [place] [address] PAIN MANAGEMENT CONSULTATION Name: GAYATRI MONTES DE OCA JR Room #: REG [facility].#: [id number] Admission: 12/25/19 Attend Phys: Isra Petit DO Discharge: Date of : 78 Report #: [id number] THIS REPORT FOR: cc: NOHEMI FELTON Physician not on staff Isra Petit DO ~ THIS REPORT FOR: //name// CC: Jacey FELTON Physician staff DATE OF SERVICE: 12/25/2019 CHIEF COMPLAINT: Coccydynia and rectal pain. HISTORY OF PRESENT ILLNESS: As you know, the patient is a 39-year-old male who returns today in followup visit having received precertification to undergo ganglion impar block to address his coccydynic pain. The patient reports good efficacy with the original ganglion impar block that provided on 09/11/2019. He received excellent benefit for a prolonged period of time up to 2 months of alleviation of symptoms to a level that he was able to go about his activities of daily living. He did not receive 100% improvement in symptoms, which is typical for this type of injection. He returns today in followup visit requesting to undergo next in the series. He is placing his current pain score 6/10. Pain is exacerbated with activity, walking and stairs; improves with medications, heat and cold compresses, repositioning and the previous ganglion impar block. He returns today in followup visit to undergo this procedure. ALLERGIES: No known drug allergies. CURRENT MEDICATIONS: Hysingla ER 30 mg in the morning, hydrocodone/acetaminophen 10/325 one tab every 6 hours p.r.n. pain, Lactobacillus 1 tab per day. SOCIAL HISTORY: The patient reports he is a nonsmoker. Denies IV or illicit drug use. Denies any chronic alcohol use. He is unaccompanied today. IMAGING: No new imaging available. PHYSICAL EXAMINATION: VITAL SIGNS: Blood pressure 142/99, pulse 82, respiratory rate 14 and unlabored. The patient is 100% on room air, height 6 feet 1 inch tall, weight 240 pounds, BMI calculated 31.7. GENERAL: Well-developed, well-nourished, well-hydrated 39-year-[place] [address] PAIN MANAGEMENT CONSULTATION Name: GAYATRI MONTES DE OCA Room #: REG [facility]#: [id number] Admission: 12/25/19 Attend Phys: Isra Petit DO Discharge: Date of : 78 Report #: [id number] appearing stated age, pain is rated today 6/10. HEENT: Normocephalic, atraumatic. Pupils equal, round, reactive to light. EXTREMITIES: Show no clubbing, no cyanosis, and no edema. MUSCULOSKELETAL: There remains tenderness to palpation over the coccyx area. Deep palpation of the area causes intensification of pain. No erythema and no rash overlying the area. Seated straight leg raising negative. Supine straight leg raising negative. ASSESSMENT: 1. Coccydynia. 2. Chronic rectal pain. 3. Opioid dependency. 4. Chronic intractable pain. PLAN: 1. The patient returns today in followup visit having received authorization to undergo ganglion impar block under fluoroscopic guidance. The patient reports good efficacy with previous injection providing pain relief enough that he was able to go about his activities of daily living for nearly 2 months. He states the combination of ganglion impar blocks with Hysingla and hydrocodone worked well for pain control. He has returned today in followup visit to undergo the ganglion impar block. He has been advised of risks and benefits, states understood and wished to proceed. 2. The patient was provided refill prescription of his Hysingla 30 mg dose 1 tab p.o. every day. I have given the patient #30 tablets, releasing today and 4 weeks from today, 2 months' worth of medication. 3. The patient was provided prescription of hydrocodone/acetaminophen 10/325 1 tab p.o. q. 6 hours p.r.n. for pain. I have given the patient #120 tablets, releasing today and 4 weeks from today, 2 months' worth of medication. 4. We will see the patient back in followup visit for next in the series of ganglion impar blocks, otherwise he will return in 2 months for medication management. PROCEDURE NOTE DESCRIPTION OF PROCEDURE: Ganglion impar block under fluoroscopic guidance. After obtaining written consent, the patient was taken back to fluoroscopy suite, placed in prone position with pillow under the pelvis to position the pelvic area appropriately. The area of the sacrum and coccyx was then prepped and draped in aseptic fashion using chlorhexidine. A sterile marker was then used to kendra the position of the injection. Lateral and AP views were obtained to confirm this positioning. We then anesthetized the skin with 3 mL of 1% preservative-free lidocaine with a 27-gauge 1-1/4 inch needle. A 25-gauge 2-inch needle was then advanced under fluoroscopic guidance towards [address] [address] PAIN MANAGEMENT CONSULTATION Name: GAYATRI MONTES DE OCA JR Room #: REG [facility]#: [id number] Admission: 12/25/19 Attend Phys: Isra Petit DO Discharge: Date of : 78 Report #: [id number] the sacrococcygeal ligament. The ligament was engaged initially. Lateral imaging was then obtained to confirm position of the needle in it and its depth. In lateral fluoroscopic view, the needle was advanced through the sacrococcygeal ligament to the anterior surface of the sacrum and coccyx. After negative aspiration for heme, 1 mL of Omnipaque injected demonstrating excellent anterior spread of the medication upon the coccyx and sacral area. After negative aspiration for heme, 3 mL of a solution containing 80 mg total Depo-Medrol along with 4 mL of bupivacaine 0.5% injected slowly. Needle was then retracted approximately 4 mm or to the posterior aspect of the sacrococcygeal ligament. After negative aspiration for heme the remaining 2 mL of the solution above was then injected. The needle was then retracted mcfp, flushed with 1 mL of 1% lidocaine and removed. Sterile bandage placed over injection site. There were no new motor deficits present in lower extremity following procedure. The patient tolerated the procedure well, carefully escorted to recovery room in stable condition. No apparent complications. After meeting discharge criteria, the patient discharged home. <ELECTRONICALLY SIGNED> By: Isra Petit DO 12/30/19 1351 [id number] Isra Petit DO /nt
== END | disposition home or self-care (01) ==
LOC: PAIN 06:43
DX: M53.3 Sacrococcygeal disorders, not elsewhere classified (principal); K62.89 Other specified diseases of anus and rectum; G89.29 Other chronic pain; F11.20 Opioid dependence, uncomplicated; F17.200 Nicotine dependence, unspecified, uncomplicated; Z98.890 Other specified postprocedural states; Z79.899 Other long term (current) drug therapy

== ENCOUNTER → 2020-03-15 | Outpatient (CLI) | payer OTHER ==
--- NOTE | 2020-03-16 14:25 | HPC ---
[facility] [address] [address] PAIN MANAGEMENT CONSULTATION Name: GAYATRI MONTES DE OCA JR Room #: REG [facility]#: [id number] Admission: 03/15/20 Attend Phys: Peyton Ceballos Discharge: Date of : 78 Report #: [id number] THIS REPORT FOR: cc: NOHEMI FELTON Physician not on staff Peyton Ceballos ~ CC: Isra Petit DO DATE OF SERVICE: 03/15/2020 This is a telemedicine appointment from 2:00 to 2:20 for this patient during the COVID outbreak that the patient has agreed upon. CHIEF COMPLAINT: Coccydynia and rectal pain. HISTORY OF PRESENT ILLNESS: This is a pleasant 39-year-old gentleman who is having a telephone/telemed appointment today due to the fact that he is in [place] for work during this COVID crisis. 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 Today, he is reporting his pain score is 7/10. His pain is located in his tailbone area. He reports that some days he does have significantly less pain. It depends on what his current job is for that day at his work. If he does require to go up and down stairs or ladders, he feels that does increase his pain significantly. If he is able to be less active on other days, his pain is less around a 3-4. On those days, he does adjust his medicines downwards, so he only takes 1-2 tablets of his hydrocodone per day and then on painful days, he is able to take 4 pills. He continues Hysingla on a daily basis. He denies any problems with constipation or daytime sleepiness. The patient does report that the ganglion impar block that Dr. Isra Petit performed at the end of November was beneficial for at least 2-3 weeks. He is unsure of a percentage, but he reports that he was able to significantly decrease his pain pills, taking his Hysingla on a daily basis, sometimes not even requiring a breakthrough pain medicine throughout that time, he felt that that injection was more beneficial than his previous one. ALLERGIES: No known drug allergies. CURRENT LIST OF MEDICATIONS: Hysingla 30 mg a.m., hydrocodone 10/325 every 6 hours and lactobacillus. PQRS: 1. He denies any osteo or rheumatoid arthritis. 2. Height and weight and vital signs were deferred today due to a telemedicine [address] [address] PAIN MANAGEMENT CONSULTATION Name: GAYATRI MONTES DE OCA JR Room #: REG [facility]#: [id number] Admission: 03/15/20 Attend Phys: Peyton Ceballos Discharge: Date of : 78 Report #: [id number] appointment. 3. Pain score is 7/10. 4. Fall risk. Denies dizziness, does not need help walking or standing, has not fallen in the last 3 months. 5. The patient is not on any blood thinners or medicine for hypertension. His opioid therapy is greater than 6 weeks; therefore, an opioid signed contract is on the chart. Risk assessment tool is low. Functional assessment is 52/70. 6. Recreational drug use, he denies. He is a current smoker and does not drink alcohol. According to the prescription monitoring system, the patient is filling appropriately for his medications. His morphine mEq, is taking all of his medicines, is 70 MME per day according to the CDC guidelines. Physical examination is deferred today due to a telemed appointment. We are doing a review of symptoms. He is alert and orientated, 39-year-old who is answering all my questions in complete sentences. He has no problem hearing me. He reports that he has tenderness in his coccyx/tailbone area. He is able to walk and be active climbing a ladder, though it does increase his pain. ASSESSMENT: 1. Coccydynia. 2. Chronic rectal pain. 3. Opioid dependency. 4. Chronic intractable pain. We reviewed the fact that opiate medications are being used to provide analgesia adequate to support activities of daily living, not attempting to achieve a specific pain score on the 0-10 Visual Analog Scale. The current opiate medications are providing sufficient analgesia to allow the patient to participate in activities of daily living. The patient is not exhibiting any aberrant behavior suggestive of drug diversion. The patient is not having any adverse reactions to medications. The patient is not suffering from daytime somnolence or mental acuity changes. The patient is managing opiate-induced constipation with appropriate [id number] agents and dietary considerations. The patient was counseled on concern for caution with operating a motor vehicle while using opiate medications. PLAN: 1. We discussed treatment options with the patient via the telephone today. He feels that his current medication regimen is quite beneficial. Some days he is requiring less hydrocodone, other days he does require more. 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 Today, he is requesting refills, which we will send to his local pharmacy. He is probably going to have his mail the actual pills to [place] where he is working. I instructed the patient that [facility] [address] [address] PAIN MANAGEMENT CONSULTATION Name: TAVONGAYATRI Mason LEHMAN Room #: REG [facility]#: [id number] Admission: 03/15/20 Attend Phys: Peyton Ceballos Discharge: Date of : 78 Report #: [id number] she needs to do this securely with a signature for him. We will not be replacing any medications. 2. We will send Hysingla 30 mg, #30 for 2 months as well as hydrocodone 10/325, #120 for today and 4 weeks supply as well. 3. We will see the patient back in followup visit in 2 months for medication management. The patient is seen today in collaboration. The patient talked today in collaboration with Dr. Isra Petit who is here present during this teleconference. <ELECTRONICALLY SIGNED> By: Peyton Ceballos 03/16/20 1425 1424 1455 Peyton Ceballos /linn
== END ==
LOC: PAIN 08:39 → TELEPC 08:39 → PAIN 16:06
DX: M53.3 Sacrococcygeal disorders, not elsewhere classified (principal); K62.89 Other specified diseases of anus and rectum; G89.29 Other chronic pain; F11.20 Opioid dependence, uncomplicated; Z79.899 Other long term (current) drug therapy

== ENCOUNTER → 2020-05-31 | Outpatient (CLI) | payer OTHER ==
[~2020-05-31] VITALS: Ht 185.4 cm; Wt 116.6 kg
[2020-05-31 08:48] VITALS: BP 161/94
--- NOTE | 2020-05-31 08:54 | NUR ---
Pain Clinic Assessment: 1. History of Osteoarthritis: DENIES History of Rheumatoid Arthritis: DENIES 2. Height: 6 ft. 1 in. 185.4 cm. Weight: 257.0 lb. oz. 116.575 kg. Patient's BMI: 33.9 3. Vital Signs: BP: 161/94 Pulse: 100 Resp: 18 Temp: 02 Sat: ECG Mon: 4. Pain Intensity: 6 5. Fall Risk: Dizziness: N Needs help standing or walking: N Fallen in the last 3 months: N Fall risk comments: 6. Patient on Blood Thinner: None 7. History of Hypertension: N 8. Opioid Therapy greater than 6 weeks: Y Opiate Contract Signed: 12/24/17 9. Risk Assessment Tool Provided: LOW RISK 0 10. Functional Assessment Tool: 11. Recreational Drug Use: Never Drug Type: Tobacco Use: Current Every Day Smoker Tobacco Type: Cigarettes Amount or Packs/day: 1/2-1 PACK How Many Years: 22 Alcohol Use: No Frequency: Quant:
--- NOTE | 2020-05-31 14:31 | HPC ---
[facility] [address] [place] [address] PAIN MANAGEMENT CONSULTATION Name: GAYATRI MONTES DE OCA JR Room #: REG [facility]#: [id number] Admission: 05/31/20 Attend Phys: Peyton Ceballos Discharge: Date of : 78 Report #: [id number] THIS REPORT FOR: cc: NOHEMI FELTON Physician not on staff Peyton Ceballos ~ CC: Isra Petit DO DATE OF SERVICE: 05/31/2020 CHIEF COMPLAINT: Coccydynia and rectal pain. HISTORY OF PRESENT ILLNESS: As you know, this is a 39-year-old gentleman who returns for followup visit today for his medication management that he uses to help treat his coccydynia pain and rectal pain. He reports a pain score today at 6/10. He feels that the previous injection by Dr. Isra Petit was beneficial. It lasted significantly longer than his first ganglion impar block. He reports that some days he is able to take 1 short-acting pain pill as well as his Hysingla, other days he still requires 4 or 5 depending on his work. He has been in [place] for the last few months, climbing up and down ladders, which did increase his pain. He is now back in the [place] area until July in the hopes of having his hernia surgery performed and recuperate. Patient states that Dr. Ochoa has ordered a CAT scan and then hopefully will have his hernia surgery scheduled within the month. The patient does report a pain score is 6/10 again in his tailbone. It is a stabbing, aching pain, worse with activity, walking and stairs. He reports that heat and repositioning as well as his medication are beneficial. He denies problems with constipation or daytime somnolence as a result of his medications. ALLERGIES: No known drug allergies. CURRENT LIST OF MEDICATIONS: Hysingla 30 mg daily, hydrocodone 10/325 p.r.n., lactobacillus. PQRS: 1. He denies rheumatoid arthritis or osteoarthritis. 2. Height is 6 feet 1 inch, weight is 257, BMI is 33. 3. Vital signs 161/94, pulse is 100, respirations 18, oxygen sat is 99. 4. Pain score is 6/10. 5. The patient is not on any blood thinners or medicine for hypertension. He does not have any dizziness or does not need help walking. He has not fallen in the last 3 months. Opioid therapy is greater than 6 weeks; therefore, an opioid signed contract will be resigned on the chart today. 6. His risk assessment is low. Functional assessment is 28/70. 7. Recreational drug use, he denies. He is a smoker of a fourth [place] [address] PAIN MANAGEMENT CONSULTATION Name: GAYATRI MONTES DE OCA JR Room #: REG [facility] Khari#: [id number] Admission: 05/31/20 Attend Phys: Peyton Ceballos Discharge: Date of : 78 Report #: [id number] of cigarettes a day and does not drink alcohol. According to the prescription monitoring system, the patient is filling appropriately for his medication in a timely fashion. He is due to fill this week. Current morphine milliequivalent is 70 MME per day. We will check a random drug screen on this patient today. He did take his medicines last night. PHYSICAL EXAMINATION: GENERAL: This is a well-developed, well-nourished, well-hydrated 39-year-old gentleman who appears his stated age, placing his current pain score at 6/10. HEENT: Normocephalic, atraumatic. Pupils equal, round and reactive to light. He is wearing a mask. EXTREMITIES: No clubbing, no cyanosis, no edema. MUSCULOSKELETAL: Tenderness to palpation over his coccyx area, does have ongoing discomfort in his right lower abdomen due to hernia repair in the past. Seated straight leg raising is negative. He walks with a normal gait. IMPRESSION: 1. Chronic coccydynia. 2. Chronic rectal pain. 3. Opioid dependency. 4. Chronic intractable pain. We reviewed the fact that opiate medications are being used to provide analgesia adequate to support activities of daily living, not attempting to achieve a specific pain score on the 0-10 Visual Analog Scale. The current opiate medications are providing sufficient analgesia to allow the patient to participate in activities of daily living. The patient is not exhibiting any aberrant behavior suggestive of drug diversion. The patient is not having any adverse reactions to medications. The patient is not suffering from daytime somnolence or mental acuity changes. The patient is managing opiate-induced constipation with appropriate dcwb-wzk-celicsl agents and dietary considerations. The patient was counseled on concern for caution with operating a motor vehicle while using opiate medications. PLAN: 1. We discussed treatment options with the patient today and we discussed in depth for greater than 20 minutes about his upcoming surgery and how to take his opioid medications. I have instructed him to decrease his short-acting starting the week before surgery to 3 times a day, then to decrease to 2 times a day, hopefully to one tablet max several days before surgery, but to continue his Hysingla on a daily basis; therefore, postoperatively hopefully, he will have better pain control. I also explained that if Dr. Ochoa does give him a short script of oxycodone that he is allowed to take that, but to call our office and notify us and then to continue his hydrocodone at 5 tablets a day for several days, but decrease back to his normal dose. The patient verbalizes [facility] [address] [place] [address] PAIN MANAGEMENT CONSULTATION Name: GAYATRI MONTES DE OCA JR Room #: REG [facility].#: [id number] Admission: 05/31/20 Attend Phys: Peyton Ceballos Discharge: Date of : 78 Report #: [id number] understanding. 2. Scripts given today for hydrocodone 10/325, #120 and Hysingla 30 mg once a day, #30, for today and 2-month supply. 3. I did discuss and encouraged the patient to decrease or stop smoking altogether. This has been discussed in the past. The patient is down to quarter to a half a pack a day. His surgeon is wanting him to quit prior to surgery as well. We did discuss the nicotine and pain interactions, hopefully his pain will be reduced some if he does quit smoking. The patient will try to stop prior to surgery. 4. We will collect a random drug screen today on this patient since it has been greater than a year and also have the patient resign his opioid contract. The patient is seen today in collaboration with Dr. Isra Petit. He is to call us with his surgery date and any prescriptions he did fill. <ELECTRONICALLY SIGNED> By: Peyton Ceballos 05/31/20 [address] [place] [address] TRINH Ceballos linn
== END ==
LOC: PAIN 06:46
PROVIDERS: ATTEND Clinical Nurse Specialist Adult Health
DX: M53.3 Sacrococcygeal disorders, not elsewhere classified (principal); K62.89 Other specified diseases of anus and rectum; F11.20 Opioid dependence, uncomplicated; G89.29 Other chronic pain; Z79.899 Other long term (current) drug therapy

== ENCOUNTER → 2020-07-27 | Outpatient (CLI) | payer OTHER ==
[~2020-07-27] VITALS: Ht 185.4 cm; Wt 118.1 kg
[2020-07-27 08:16] VITALS: BP 129/85
--- NOTE | 2020-07-27 08:26 | NUR ---
Pain Clinic Assessment: 1. History of Osteoarthritis: DENIES History of Rheumatoid Arthritis: DENIES 2. Height: 6 ft. 1 in. 185.4 cm. Weight: 260.4 lb. oz. 118.117 kg. Patient's BMI: 34.4 3. Vital Signs: BP: 129/85 Pulse: 91 Resp: 16 Temp: 02 Sat: 99 ECG Mon: 4. Pain Intensity: 6-7 5. Fall Risk: Dizziness: N Needs help standing or walking: N Fallen in the last 3 months: N Fall risk comments: 6. Patient on Blood Thinner: None 7. History of Hypertension: N 8. Opioid Therapy greater than 6 weeks: Y Opiate Contract Signed: 12/24/17 9. Risk Assessment Tool Provided: LOW RISK 0 10. Functional Assessment Tool: 11. Recreational Drug Use: Never Drug Type: Tobacco Use: Current Every Day Smoker Tobacco Type: Amount or Packs/day: How Many Years: Alcohol Use: No Frequency: Quant:
--- NOTE | 2020-07-27 13:22 | HPC ---
[facility] [address] [address] PAIN MANAGEMENT CONSULTATION Name: GAYATRI MONTES DE OCA JR Room #: REG [facility].#: [id number] Admission: 07/27/20 Attend Phys: Peyton Ceballos Discharge: Date of : 78 Report #: [id number] THIS REPORT FOR: cc: NOHEMI FELTON Physician not on staff Peyton Ceballos ~ CC: Isra Petit DO DATE OF SERVICE: 07/27/2020 CHIEF COMPLAINT: Coccydynia and rectal pain. HISTORY OF PRESENT ILLNESS: As you know, this is a 40-year-old gentleman who returns to the pain clinic today for a refill of his medications that he uses to help treat his ongoing tailbone pain. He is rating a pain score of 6-7 today. He recently did have hernia surgery in May and feels like some of this pain is related to that. It is worse with activity, walking and climbing stairs. He has been off work for a while for his hernia surgery recovery. 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 He states usually the medications as well as repositioning and heat are beneficial. Today, he is here requesting refills of his medication prior to going out of town. He does safeguard his medications when he is on the job sites at all times. ALLERGIES: No known drug allergies. CURRENT LIST OF MEDICATIONS: Hysingla 30 mg daily, hydrocodone 10/325 q.i.d. p.r.n., and probiotic. PQRS: 1. He denies rheumatoid or osteoarthritis. 2. Height is 6 feet 1 inch, weight is 260, BMI is 34. 3. Vital signs 129/85, pulse is 91, respirations 16, oxygen sat is 99. 4. Pain score is 6-7. 5. Denies dizziness, does not need help walking or standing, has not fallen in the last 3 months. 6. The patient is not on blood thinners or medicine for hypertension. 7. Opiate therapy is greater than 6 weeks; therefore, an opioid signed contract is on the chart. Risk assessment is low. Functional assessment is 28/70. 8. Recreational drug use, he denies. He is a current smoker of half a pack of cigarettes a day and denies alcohol. According to the prescription monitoring system, the patient is due to fill his hydrocodone today. He is not due for his Hysingla for 2 weeks. His morphine mEq according to the CDC guidelines is 70 MME. He did obtain a small prescription of oxycodone after his hernia repair. There is a recent drug screen on the chart [place] [address] PAIN MANAGEMENT CONSULTATION Name: GAYATRI MONTES DE OCA JR Room #: REG [facility]#: [id number] Admission: 07/27/20 Attend Phys: Peyton TRINH Ceballos Discharge: Date of : 78 Report #: [id number] PHYSICAL EXAMINATION: GENERAL: This is alert and orientated, well-developed, well-nourished 40-year-old gentleman who appears his stated age, placing his current pain score at 6-7. HEENT: Normocephalic, atraumatic. Extraocular eye muscles are intact. He is wearing a mask. EXTREMITIES: No clubbing, no cyanosis, no edema. MUSCULOSKELETAL: He has tenderness over the coccyx region. Straight leg raising is negative. He does have a slight discomfort in his right lower abdomen due to recent hernia repair with a well-approximated scar. He has a normal gait. IMPRESSION: 1. Chronic coccydynia. 2. Chronic rectal pain. 3. Opioid dependency. 4. Chronic intractable pain. We reviewed the fact that opiate medications are being used to provide analgesia adequate to support activities of daily living, not attempting to achieve a specific pain score on the 0-10 Visual Analog Scale. The current opiate medications are providing sufficient analgesia to allow the patient to participate in activities of daily living. The patient is not exhibiting any aberrant behavior suggestive of drug diversion. The patient is not having any adverse reactions to medications. The patient is not suffering from daytime somnolence or mental acuity changes. The patient is managing opiate-induced constipation with appropriate tzwu-ibu-zvyrofa agents and dietary considerations. The patient was counseled on concern for caution with operating a motor vehicle while using opiate medications. A physical exam was performed and the patient's functional status was evaluated. All patients with back pain were advised against the bed rest greater than 4 days and were advised to return to normal activities. Pain score assessment was noted and the treatment plan was reviewed with the patient. All current medications, both prescribed and OTC were reviewed and reconciled on the electronic medical record. Tobacco screening was accomplished and smoking cessation was advised when indicated. BMI was noted and diet/exercise modification was recommended for all patients following outside normal parameters. I reviewed with the patient today their responsibilities to safeguard prescription medications, reviewed their responsibility to utilize medications only as prescribed by the physician. They are to seek and receive pain medications only from 1 physician group ([facility]). They are to use 1 pharmacy and keep the clinic informed if they change pharmacies. Their [address] [address] PAIN MANAGEMENT CONSULTATION Name: GAYATRI MONTES DE OCA JR Room #: REG [facility]#: [id number] Admission: 07/27/20 Attend Phys: Peyton Ceballos Discharge: Date of : 78 Report #: [id number] responsibilities include making followup visits in a timely fashion and to avoid abrupt discontinuation of medication usage. Their responsibilities further include bringing their medications (bottles from the pharmacy with residual pills) to the visit for possible confirmation of pill counts and the patient understands it is their responsibility to submit to random drug screens to ensure both that the medications prescribed are present, and that no other controlled substances are present. All prescriptions provided today were generated electronically. PLAN: 1. We discussed treatment options with the patient today. He feels that his abdominal surgery for hernia repair was successful. He has not been working, but will start within a week. According to the patient, he has no restrictions, but he will be very careful when he is climbing stairs and ladders and lifting things at his job. He is slightly nervous that his pain may increase due to his recent surgery when he does return to work, but understands that we are trying to keep him on the lowest most effective dose. Today, we will have Dr. Isra Petit send his hydrocodone 10/325, #120 for today and 4-week release and his Hysingla 30 mg, #30, for today and 4-week release. 2. We did talk about his smoking cessation. The patient is down to half a pack of cigarettes a day and has been since prior to his surgery. I encouraged him to continue the downward trend, understanding that it will be hard when he goes back to work. I encouraged him to use Nicorette gum. He does report he has patches at home that he will take with him for the job site. 3. The patient denies any daytime somnolence or constipation as a result of his medications. The patient will return in 2 months. The patient is seen in collaboration with Dr. Isra Petit today. <ELECTRONICALLY SIGNED> By: Peyton Ceballos 07/27/20 1322 [id number] [id number] Peyton Ceballos /nt
== END ==
LOC: PAIN 06:49
PROVIDERS: ATTEND Clinical Nurse Specialist Adult Health
DX: K62.89 Other specified diseases of anus and rectum (principal); M53.3 Sacrococcygeal disorders, not elsewhere classified; F11.20 Opioid dependence, uncomplicated; G89.29 Other chronic pain; Z79.899 Other long term (current) drug therapy

== ENCOUNTER → 2020-09-15 | Outpatient (CLI) | payer OTHER ==
[~2020-09-15] VITALS: Ht 185.4 cm; Wt 114.8 kg
[2020-09-15 14:24] VITALS: BP 128/82
--- NOTE | 2020-09-15 14:42 | NUR ---
Pain Clinic Assessment: 1. History of Osteoarthritis: DENIES History of Rheumatoid Arthritis: DENIES 2. Height: 6 ft. 1 in. 185.4 cm. Weight: 253.0 lb. oz. 114.760 kg. Patient's BMI: 33.4 3. Vital Signs: BP: 128/82 Pulse: 92 Resp: 16 Temp: 02 Sat: 96 ECG Mon: 4. Pain Intensity: 6 5. Fall Risk: Dizziness: N Needs help standing or walking: N Fallen in the last 3 months: N Fall risk comments: 6. Patient on Blood Thinner: None 7. History of Hypertension: N 8. Opioid Therapy greater than 6 weeks: Y Opiate Contract Signed: 12/24/17 9. Risk Assessment Tool Provided: LOW RISK 0 10. Functional Assessment Tool: 11. Recreational Drug Use: Never Drug Type: Tobacco Use: Current Every Day Smoker Tobacco Type: Cigarettes Amount or Packs/day: How Many Years: Alcohol Use: No Frequency: Quant:
--- NOTE | 2020-09-16 08:46 | HPC ---
[facility] [address] [place] [address] PAIN MANAGEMENT CONSULTATION Name: ANA PAULASKYGAYATRI Cuevas Room #: REG [facility] Khari#: [id number] Admission: 09/15/20 Attend Phys: Peyton Ceballos Discharge: Date of : 78 Report #: [id number] CC: Peyton ROCK Physician staff DATE OF SERVICE: 09/15/2020 CHIEF COMPLAINT: Coccydynia and rectal pain. HISTORY OF PRESENT ILLNESS: As you know, this is a 40-year-old gentleman who returns to the pain clinic today to discuss his opioid medications that he uses to help treat his ongoing coccydynia pain that he has had for quite some time. Today, he is reporting a pain score of 6/10, though at times it is much lower. He reports depending on his activity how much stairs, walking and ladders or working lying down, does increase his pain. He feels that overall his medication has been beneficial as well as repositioning. At times, he reports that his pain is stabbing in his tailbone. The patient had hernia surgery by Dr. Ochoa earlier this summer. He feels like he no longer has abdominal pain and feels like he has healed. He is getting ready to go out of town for the first time since that surgery to [facility] tomorrow, so he is here for an appointment, though his medications are not due for a couple of weeks. The patient would also like to discuss possible surgery for next summer to relieve his coccydynia pain and have his coccyx removed. He had discussed this with Dr. Isra Petit in the past. He is wondering what physician he should make an appointment for consultation when he is in town. His goal would ultimately have this surgery next summer and then wean off his opioid medications. He knows that he is young to be on these type of medications and does not wish to be on them lifelong. ALLERGIES: No known drug allergies. CURRENT LIST OF MEDICATIONS: Hysingla ER 30 mg daily, hydrocodone 10/325 p.r.n., and probiotic. PQRS: 1. He denies rheumatoid or osteoarthritis. 2. Height is 6 feet 1 inch, weight is 253, BMI is 33. 3. Vital signs, blood pressure 128/82, pulse is 92, respirations 16, oxygen sat is 96%. 4. Pain score 6/10. 5. Denies dizziness, does not need help walking or standing, has not fallen in the last 3 months. 6. The patient is not on any blood thinners or medicine for hypertension. 7. Opioid therapy is greater than 6 weeks; therefore, an opioid signed contract is on the chart. Risk assessment is low. Functional assessment is 28/70. 8. Recreational drug use, he denies. He is a current smoker of cigarettes and does not drink alcohol. According to the prescription monitoring system, the patient is filling appropriately, though he is not due to fill his medications until 09/22 and 10/10. His morphine milliequivalent according to the CDC guidelines is 70, slightly above their recommendations. He has been stable, though on his medications for quite some time and we have weaned him significantly over the past few years. PHYSICAL EXAMINATION: GENERAL: This is a well-developed, well-nourished, well-hydrated 40-year-old gentleman who appears his stated age, rating his pain score today at 6/10. HEENT: Normocephalic, atraumatic. Pupils equal, round and reactive to light. He is wearing a mask. EXTREMITIES: No clubbing, no cyanosis, no edema. MUSCULOSKELETAL: He has tenderness over his coccyx area. Seated straight leg raising is negative. Supine straight leg raising is negative. IMPRESSION: 1. Coccydynia. 2. Chronic rectal pain. 3. Opioid dependency. 4. Chronic intractable pain. We reviewed the fact that opiate medications are being used to provide analgesia adequate to support activities of daily living, not attempting to achieve a specific pain score on the 0-10 Visual Analog Scale. The current opiate medications are providing sufficient analgesia to allow the patient to participate in activities of daily living. The patient is not exhibiting any aberrant behavior suggestive of drug diversion. The patient is not having any adverse reactions to medications. The patient is not suffering from daytime somnolence or mental acuity changes. The patient is managing opiate-induced constipation with appropriate pyuv-cnx-knhyabb agents and dietary considerations. The patient was counseled on concern for caution with operating a motor vehicle while using opiate medications. A physical exam was performed and the patient's functional status was evaluated. All patients with back pain were advised against the bed rest greater than 4 days and were advised to return to normal activities. Pain score assessment was noted and the treatment plan was reviewed with the patient. All current medications, both prescribed and OTC were reviewed and reconciled on the electronic medical record. Tobacco screening was accomplished and smoking cessation was advised when indicated. BMI was noted and diet/exercise modification was recommended for all patients following outside normal parameters. I reviewed with the patient today their responsibilities to safeguard prescription medications, reviewed their responsibility to utilize medications only as prescribed by the physician. They are to seek and receive pain medications only from 1 physician group ( [facility]). They are to use 1 pharmacy and keep the clinic informed if they change pharmacies. Their responsibilities include making followup visits in a timely fashion and to avoid abrupt discontinuation of medication usage. Their responsibilities further include bringing their medications (bottles from the pharmacy with residual pills) to the visit for possible confirmation of pill counts and the patient understands it is their responsibility to submit to random drug screens to ensure both that the medications prescribed are present, and that no other controlled substances are present. All prescriptions provided today were generated electronically. PLAN: 1. We discussed treatment options with the patient today. The patient would like to start the process of thinking of possible surgery next summer when he is usually slower at work to remove his coccyx and hopefully decrease his rectal pain that he continues to experience. He had discussed this with Dr. Isra Petit. I will discuss this further with Dr Petit and offer names to the patient. The patient states he would like to have the surgery and then wean off his opioids after his recovery process. 2. We will refill his opioid medications today. He finds these very beneficial in relieving a significant portion of his pain, allowing him to be active at work. At times, he feels that the Hysingla is needed throughout the day with only one hydrocodone a day, but other times depending on his activity at work. He does require all 4 hydrocodone breakthrough pain medicines. Hysingla 30 mg, #30 will be sent electronically by Dr. Petit to release on 10/10 and 11/07 and his hydrocodone 10/325, #120 will be set to be released 09/22 and 10/19. 3. 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 He verbalizes understanding. The patient will return in 2 months. The patient is seen today in collaboration with Dr. Isra Petit. <ELECTRONICALLY SIGNED> By: Peyton Ceballos 09/16/20 0846 [id number] [id number] Peyton Ceballos /linn
== END ==
LOC: PAIN 06:59
PROVIDERS: ATTEND Clinical Nurse Specialist Adult Health
DX: M53.3 Sacrococcygeal disorders, not elsewhere classified (principal); G89.4 Chronic pain syndrome; Z79.891 Long term (current) use of opiate analgesic

== ENCOUNTER → 2020-11-22 | Outpatient (CLI) | payer OTHER ==
[~2020-11-22] VITALS: Ht 185.4 cm; Wt 112.9 kg
[2020-11-22 08:36] VITALS: BP 141/91
--- NOTE | 2020-11-22 08:44 | NUR ---
Pain Clinic Assessment: 1. History of Osteoarthritis: DENIES History of Rheumatoid Arthritis: DENIES 2. Height: 6 ft. 1 in. 185.4 cm. Weight: 248.8 lb. oz. 112.855 kg. Patient's BMI: 32.8 3. Vital Signs: BP: 141/91 Pulse: 91 Resp: 18 Temp: 02 Sat: 99 ECG Mon: 4. Pain Intensity: 5-6 5. Fall Risk: Dizziness: N Needs help standing or walking: N Fallen in the last 3 months: N Fall risk comments: 6. Patient on Blood Thinner: None 7. History of Hypertension: N 8. Opioid Therapy greater than 6 weeks: Y Opiate Contract Signed: 12/24/17 9. Risk Assessment Tool Provided: LOW RISK 0 10. Functional Assessment Tool: 11. Recreational Drug Use: Never Drug Type: Tobacco Use: Current Every Day Smoker Tobacco Type: Amount or Packs/day: 1/2 PACK How Many Years: Alcohol Use: Yes Frequency: Special Occasions Quant: 1-2
--- NOTE | 2020-11-22 14:16 | HPC ---
[facility] [address] [place] [address] PAIN MANAGEMENT CONSULTATION Name: GAYATRI MONTES DE OCA JR Room #: REG [facility]#: [id number] Admission: 11/22/20 Attend Phys: Peyton Ceballos Discharge: Date of : 78 Report #: [id number] THIS REPORT FOR: cc: NOHEMI FELTON Physician not on staff Peyton Ceballos ~ DATE OF SERVICE: 11/22/2020 CC: Dr Isra Petit DO CHIEF COMPLAINT: Coccydynia and rectal pain. HISTORY OF PRESENT ILLNESS: This is a pleasant 40-year-old gentleman who returns to the pain clinic today for refill of his opioid medications. He reports these are beneficial in helping control his tailbone and coccydynia pain. His pain is worse with activity, which he has required for his job. He does walk up to 9 miles a day and climbs ladders. This does aggravate his tailbone, but finds the medication as well as heat at night very beneficial. Today, he is reporting his pain score of 5-6 and describes it as a stabbing pain. The patient continues to travel for his job. He is leaving tomorrow for [place], so he is going to fill his hydrocodone today, which he is due for and understands he is not able to fill his Hysingla until November. His will FedEx his medications to him and then he should be home before the next fill. ALLERGIES: No known drug allergies. CURRENT LIST OF MEDICATIONS: Hysingla ER 30 mg daily, hydrocodone 10/325 p.r.n., and probiotic. PQRS: 1. He denies osteo or rheumatoid arthritis. 2. Height is 6 feet 1 inch, weight is 248, BMI is 32. 3. Vital signs 141/91, pulse is 91, respirations 18, oxygen sat is 99. 4. Pain score is 5-6. 5. The patient denies dizziness, does not need help walking or standing, has not fallen in the last 3 months. 6. The patient is not on any blood thinners or hypertensive medicines. 7. Opioid therapy is greater than 6 weeks; therefore, an opioid signed contract is on the chart. Risk assessment is low. Functional assessment is 28/70. 8. Recreational drug use, he denies. He is a current smoker about half a pack of cigarettes and occasionally drinks alcohol. According to the prescription monitoring system, he is due to fill his hydrocodone today and Hysingla in November. His morphine milliequivalent is 70 MME and he is seen in our clinic every 2 months. PHYSICAL EXAMINATION: GENERAL: This is alert and orientated, well-developed, [place] [address] PAIN MANAGEMENT CONSULTATION Name: GAYATRI MONTES DE OCA JR Room #: REG [facility]#: [id number] Admission: 11/22/20 Attend Phys: Peyton Ceballos Discharge: Date of : 79 Report #: [id number] 40-year-old gentleman who appears his stated age, placing his current pain score of 5 today. HEENT: Normocephalic, atraumatic. Extraocular eye muscles are intact. He is wearing a mask. MUSCULOSKELETAL: He has tenderness in his tailbone, coccyx region that increases with activity. Pain increases with activity. Straight leg raising is negative. His lower extremity strength is symmetrical at 5/5. IMPRESSION: 1. Coccydynia. 2. Chronic rectal pain. 3. Opioid dependency. 4. Chronic intractable pain. We reviewed the fact that opiate medications are being used to provide analgesia adequate to support activities of daily living, not attempting to achieve a specific pain score on the 0-10 Visual Analog Scale. The current opiate medications are providing sufficient analgesia to allow the patient to participate in activities of daily living. The patient is not exhibiting any aberrant behavior suggestive of drug diversion. The patient is not having any adverse reactions to medications. The patient is not suffering from daytime somnolence or mental acuity changes. The patient is managing opiate-induced constipation with appropriate vmoi-xqd-zsklnzm agents and dietary considerations. The patient was counseled on concern for caution with operating a motor vehicle while using opiate medications. A physical exam was performed and the patient's functional status was evaluated. All patients with back pain were advised against the bed rest greater than 4 days and were advised to return to normal activities. Pain score assessment was noted and the treatment plan was reviewed with the patient. All current medications, both prescribed and OTC were reviewed and reconciled on the electronic medical record. Tobacco screening was accomplished and smoking cessation was advised when indicated. BMI was noted and diet/exercise modification was recommended for all patients following outside normal parameters. I reviewed with the patient today their responsibilities to safeguard prescription medications, reviewed their responsibility to utilize medications only as prescribed by the physician. They are to seek and receive pain medications only from 1 physician group ([facility]). They are to use 1 pharmacy and keep the clinic informed if they change pharmacies. Their responsibilities include making followup visits in a timely fashion and to avoid abrupt discontinuation of medication usage. Their responsibilities further include bringing their medications (bottles from the pharmacy with residual pills) to the visit for possible confirmation of pill counts and the patient understands it is their responsibility to submit to random drug screens to [address] [address] PAIN MANAGEMENT CONSULTATION Name: GAYATRI MONTES DE OCA JR Room #: REG [facility]#: [id number] Admission: 11/22/20 Attend Phys: Peyton Ceballos Discharge: Date of : 78 Report #: [id number] ensure both that the medications prescribed are present, and that no other controlled substances are present. All prescriptions provided today were generated electronically. PLAN: 1. We discussed treatment options with the patient today. He feels that the medications are currently very beneficial in reducing his pain, allowing him to be as active as he is able, especially with his job, but does require him to be on his feet and very active throughout the day. He is very thankful for the Hysingla and the hydrocodone. We will refill these medications sending them electronically for release on 11/22 and 12/20 for his hydrocodone. Hysingla will be released on 12/07 and 01/04. These will be sent electronically by Dr. Petit. 2. The patient is seen in collaboration with Dr. Petit today. He will return in 2 months for an appointment. <ELECTRONICALLY SIGNED> By: Peyton Ceballos 11/22/20 1416 0916 0940 Peyton Ceballos /nt
== END ==
LOC: PAIN 06:46
PROVIDERS: ATTEND Clinical Nurse Specialist Adult Health
DX: M53.3 Sacrococcygeal disorders, not elsewhere classified (principal); K62.89 Other specified diseases of anus and rectum; F11.20 Opioid dependence, uncomplicated; G89.29 Other chronic pain

== ENCOUNTER → 2021-01-18 | Outpatient (CLI) | payer OTHER ==
[~2021-01-18] VITALS: Ht 185.4 cm; Wt 116.0 kg
[2021-01-18 12:58] VITALS: BP 162/97
--- NOTE | 2021-01-18 13:03 | NUR ---
Pain Clinic Assessment: 1. History of Osteoarthritis: DENIES History of Rheumatoid Arthritis: DENIES 2. Height: 6 ft. 1 in. 185.4 cm. Weight: 255.8 lb. oz. 116.030 kg. Patient's BMI: 33.8 3. Vital Signs: BP: 162/97 Pulse: 89 Resp: 20 Temp: 02 Sat: 97 ECG Mon: 4. Pain Intensity: 6 5. Fall Risk: Dizziness: N Needs help standing or walking: N Fallen in the last 3 months: N Fall risk comments: 6. Patient on Blood Thinner: None 7. History of Hypertension: N 8. Opioid Therapy greater than 6 weeks: Y Opiate Contract Signed: 12/24/17 9. Risk Assessment Tool Provided: LOW RISK 0 10. Functional Assessment Tool: 11. Recreational Drug Use: Never Drug Type: Tobacco Use: Current Every Day Smoker Tobacco Type: Cigarettes Amount or Packs/day: <1 How Many Years: Alcohol Use: Yes Frequency: Special Occasions Quant: SOCIAL
--- NOTE | 2021-01-19 12:47 | HPC ---
[facility] [address] [place] [address] PAIN MANAGEMENT CONSULTATION Name: GAYATRI MONTES DE OCA JR Room #: REG [facility]#: [id number] Admission: 01/18/21 Attend Phys: Peyton Ceballos Discharge: Date of : 78 Report #: [id number] THIS REPORT FOR: cc: NOHEMI FELTON Physician not on staff Peyton Ceballos ~ DATE OF SERVICE: 01/18/2021 CHIEF COMPLAINT: Coccydynia and rectal pain. HISTORY OF PRESENT ILLNESS: This is a 40-year-old gentleman who returns to the pain clinic today for refill of his medication. Today, he is reporting a pain score of 6/10, mostly located in his tailbone, though he does have occasional low back pain. It is a stabbing sensation at times when he is very busy at work, climbing up ladders, going upstairs. So today, he is rating his pain score at 6/10. He does report that some days he has very minimal pain and does not require his breakthrough pain medicine. The Hysingla is very beneficial in controlling this pain. Other days, his pain is significant and requires all of his hydrocodone doses. He also utilizes heat, rest, and repositioning and finds this beneficial as well. The patient denies any daytime somnolence or constipation issues. The patient is also requesting information about tanezumab injection. This is a medication we had discussed in the past with him for his arthritic issues. He feels that the Hysingla is becoming more expensive and is very interested in having this injection when it becomes available. ALLERGIES: No known drug allergies. CURRENT LIST OF MEDICATIONS: Hysingla 30 mg daily, hydrocodone 10/325 p.r.n., lactobacillus. PQRS: 1. Osteoarthritic changes in his back. Denies rheumatoid arthritis. 2. Height is 6 feet 1 inch, weight is 255, BMI is 33. 3. Vital signs 162/97, pulse is 89, respirations 20, oxygen sat is 97. 4. Pain score 6/10. 5. Denies dizziness, does not need help walking, has not fallen in the last 3 months. 6. The patient is not on any blood thinners or medicine for hypertension. 7. Opioid therapy is greater than 6 weeks; therefore, an opioid signed contract is on the chart. Risk assessment is low. Functional assessment is 28/70. 8. Recreational drug use, he denies. He is a smoker of less than a pack a day, occasionally drinks alcohol. According to the prescription monitoring system, he is due to fill his [address] [address] PAIN MANAGEMENT CONSULTATION Name: GAYATRI MONTES DE OCA JR Room #: REG [facility].#: [id number] Admission: 01/18/21 Attend Phys: Peyton Ceballos Discharge: Date of : 78 Report #: [id number] hydrocodone. His Hysingla is due in 2 weeks. His morphine mEq according to the CDC is 70 MMEs. PHYSICAL EXAMINATION: GENERAL: This is alert and orientated 40-year-old gentleman who appears his stated age, placing his current pain score today at 6/10. HEENT: Normocephalic, atraumatic. Extraocular eye muscles are intact. He is wearing a mask. EXTREMITIES: No clubbing, no cyanosis, no edema. MUSCULOSKELETAL: Tenderness to palpation over his coccyx area. Straight leg raising is negative. There is tenderness in his lumbosacral region as well. ASSESSMENT: 1. Coccydynia. 2. Chronic rectal pain. 3. Opioid dependency. 4. Chronic intractable pain. PLAN: 1. We discussed treatment options with the patient today. The patient finds his medication very beneficial, allowing him to be as active as he is able. 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 He believes his medications help him be active at his job today. We will continue his Hysingla 30 mg tablets to be released 02/08/2021 and 03/08/2021 as well as his hydrocodone 10/325, #120, to be released today and again on 02/15/2021. 2. We did discuss his weight. Today, it was 255. At his last visit, it was 248. The patient is unaware that he had gained that much weight. Per perusal of the chart, at times, he had weighed 240 up to 258. The patient reports he will try to watch what he eats the next few months and hopefully decrease some of his weight. 3. We did talk about the injection tanezumab. I explained to him that it is not on the market yet. We are hopeful that will be on some time this year. We will discuss this further when we know that is available for injection in use. 4. The patient is seen today in collaboration with Dr. Isra Petit. <ELECTRONICALLY SIGNED> By: Peyton Ceballos 01/19/21 1247 1434 1620 Peyton Ceballos /nt
== END ==
LOC: PAIN 06:53
PROVIDERS: ATTEND Clinical Nurse Specialist Adult Health
DX: K62.89 Other specified diseases of anus and rectum (principal); M53.3 Sacrococcygeal disorders, not elsewhere classified; G89.29 Other chronic pain; Z88.8 Allergy status to other drugs, medicaments and biological substances; Z79.899 Other long term (current) drug therapy

== ENCOUNTER → 2021-03-15 | Outpatient (CLI) | payer OTHER ==
[~2021-03-15] VITALS: Ht 185.4 cm; Wt 115.2 kg
[2021-03-15 09:14] VITALS: BP 129/85
--- NOTE | 2021-03-15 09:20 | NUR ---
Pain Clinic Assessment: 1. History of Osteoarthritis: DENIES History of Rheumatoid Arthritis: DENIES 2. Height: 6 ft. 1 in. 185.4 cm. Weight: 254.0 lb. oz. 115.214 kg. Patient's BMI: 33.5 3. Vital Signs: BP: 129/85 Pulse: 96 Resp: 16 Temp: 02 Sat: 95 ECG Mon: 4. Pain Intensity: 7 TO 8 5. Fall Risk: Dizziness: N Needs help standing or walking: N Fallen in the last 3 months: N Fall risk comments: 6. Patient on Blood Thinner: None 7. History of Hypertension: N 8. Opioid Therapy greater than 6 weeks: Y Opiate Contract Signed: 12/24/17 9. Risk Assessment Tool Provided: LOW RISK 0 10. Functional Assessment Tool: 11. Recreational Drug Use: Never Drug Type: Tobacco Use: Current Every Day Smoker Tobacco Type: Amount or Packs/day: 1/2 PCK How Many Years: Alcohol Use: Yes Frequency: Special Occasions Quant: 2
== END ==
LOC: PAIN 06:51
PROVIDERS: ATTEND Clinical Nurse Specialist Adult Health
DX: Z76.0 Encounter for issue of repeat prescription (principal); M54.6 Pain in thoracic spine; G89.29 Other chronic pain; F17.200 Nicotine dependence, unspecified, uncomplicated; Z72.89 Other problems related to lifestyle; Z79.891 Long term (current) use of opiate analgesic; Z79.899 Other long term (current) drug therapy

== ENCOUNTER → 2021-05-10 | Outpatient (CLI) | payer OTHER ==
[~2021-05-10] VITALS: Ht 185.4 cm; Wt 107.9 kg
--- NOTE | ~2021-05-10 | HPC ---
[facility] [place] [address] PAIN MANAGEMENT CONSULTATION Name: TAVONGAYATRI Mason LEHMAN Room #: REG [facility].#: [id number] Admission: 05/10/21 Attend Phys: Isra Petit DO Discharge: Date of : 78 Report #: [id number] THIS REPORT FOR: cc: NOHEMI FELTON Physician not on staff Isra Petit DO ~ DOC #: [id number] cc: Jacey Ramos MD, Isra Petit DO DATE OF SERVICE: 05/10/2021 REFERRING PHYSICIAN: Jacey Ramos M.D. CHIEF COMPLAINT: Coccydynia and rectal pain. HISTORY OF PRESENT ILLNESS: As you know, the patient is a very pleasant 40-year-old male with longstanding history of rectal pain and chronic coccydynia that was unresolved with surgical treatment. The patient has been on long-term medication management for ongoing pain issues. He is taking Hysingla 30 mg once a day, utilizing breakthrough hydrocodone 10/325 up to 4 times a day for pain control unresolved by the baseline medication. The patient reports some new changes in his relationship with his . Apparently, they are having some marital strife and this has led to increasing anxiety and stress. He had contact our clinic requesting anxiolytic medications. We advised the patient that we do not recommend benzodiazepines with concomitant use of opioid medication due to the complication rate. He states that he has been able to find ways around his anxiety issue and is discussing now with his , possible marital counseling. He returns today in followup visit requesting medication management. He states he has not had his hydrocodone either in the Hysingla form or immediate release form since Saturday. He takes the medication on an as needed basis. He returns to obtain refill of medications for his baseline pain. He is placing pain up to 7-8/10. ALLERGIES: No known drug allergies. CURRENT MEDICATIONS: Hysingla 30 mg once a day, hydrocodone 10/325 1 tab p.o. q. 6 hours p.r.n. for pain, lactobacillus one tab per day. SOCIAL HISTORY: The patient reports he is a nonsmoker. He denies IV or illicit drug use. Denies any chronic alcohol use. He is working, not receiving Workmen's Compensation, unaccompanied today. IMAGING: No new imaging available. PHYSICAL EXAMINATION: VITAL SIGNS: Blood pressure 133/79, pulse 87, respiratory rate 16 and [facility] [address] [place] [address] PAIN MANAGEMENT CONSULTATION Name: ANA PAULASKYGAYATRI Mason LEHMAN Room #: [facility]#: [id number] Admission: 05/10/21 Attend Phys: Isra Petit DO Discharge: Date of : 78 Report #: [id number] unlabored. The patient 98% on room air, height 6 feet 1 inch tall, weight 237.8 pounds, BMI calculated 31.4. GENERAL: Well-developed, well-nourished, well-hydrated 40-year-old male appearing stated age, pain is rated up to 7-8/10. HEENT: Normocephalic, atraumatic. Pupils equal, round and responsive. He is wearing a mask in compliance with COVID-19 regulations. EXTREMITIES: Show no clubbing, no cyanosis and no edema. MUSCULOSKELETAL: The patient once again has some tenderness over the coccyx area. Well healed surgical scars are noted. Seated straight leg raising negative. Supine straight leg raising negative. Pain is elicited with sitting and standing, but improved with lying down. ASSESSMENT: 1. Chronic coccydynia. 2. Chronic rectal pain. 3. Complicated medication management utilizing scheduled medications. 4. Opioid dependency. 5. Chronic intractable pain. PLAN: 1. The patient returns today in followup visit requesting a refill on medications. He feels medications are working beneficially. He states he takes the Hysingla and the hydrocodone on an as needed basis. He states that he has not had to take the medication since Saturday of this last week. He reports that when his medication is required it does provide analgesic benefit. He is pleased with response to medication, wishing to continue the therapy. 2. The patient will submit to urine drug screen today. We have reviewed the patient's PDMP. There is no concerning entries on the [place] and [place] reports. We reviewed his recent urine drug screen, which was appropriate. He will submit to the urine drug screen today as part of our monitoring program. 3. We reviewed the fact that opiate medications are being used to provide analgesia adequate to support activities of daily living, not attempting to achieve a specific pain score on the 0-10 Visual Analog Scale. The current opiate medications are providing sufficient analgesia to allow the patient to participate in activities of daily living. The patient is not exhibiting any aberrant behavior suggestive of drug diversion. The patient is not having any adverse reactions to medications. The patient is not suffering from daytime somnolence or mental acuity changes. The patient is managing opiate-induced constipation with appropriate zzoi-mhj-caitnyo agents and dietary considerations. The patient was counseled on concern for caution with operating a motor vehicle while using opiate medications. A physical exam was performed and the patient's functional status was evaluated. All patients with back pain were advised against the bed rest greater than 4 days and were advised to return to normal activities. Pain score assessment was noted and the treatment plan was reviewed with the patient. All current [facility] [address] [place] [address] PAIN MANAGEMENT CONSULTATION Name: GAYATRI MONTES DE OCA JR Room #: REG [facility].#: [id number] Admission: 05/10/21 Attend Phys: Isra Petit DO Discharge: Date of : 78 Report #: [id number] medications, both prescribed and OTC were reviewed and reconciled on the electronic medical record. Tobacco screening was accomplished and smoking cessation was advised when indicated. BMI was noted and diet/exercise modification was recommended for all patients following outside normal parameters. I reviewed with the patient today their responsibilities to safeguard prescription medications, reviewed their responsibility to utilize medications only as prescribed by the physician. They are to seek and receive pain medications only from 1 physician group ( [facility]). They are to use 1 pharmacy and keep the clinic informed if they change pharmacies. Their responsibilities include making followup visits in a timely fashion and to avoid abrupt discontinuation of medication usage. Their responsibilities further include bringing their medications (bottles from the pharmacy with residual pills) to the visit for possible confirmation of pill counts and the patient understands it is their responsibility to submit to random drug screens to ensure both that the medications prescribed are present, and that no other controlled substances are present. All prescriptions provided today were generated electronically. 4. The patient was provided a prescription of Hysingla 30 mg dose 1 tab p.o. every day, given the patient #30 tablets to release today and 4 weeks from today 2 months' worth of medication. 5. The patient was provided prescription of hydrocodone/acetaminophen, 10/325, one tab p.o. q. 6 hours p.r.n. for pain given the patient #120 to release today and 4 weeks from today 2 months' worth of medication. This prescription was sent via e-scribe to local pharmacy. 6. The patient will submit urine drug screen as part of our monitoring program. We have signed for the urine drug screen to be obtained today. He states he has last taken medications on Saturday of the week 4 days ago. This was placed on our paperwork. We will review those findings once they are available. The patient can contact our clinic for those findings if he wishes to do so. Otherwise, we will review those at our followup visit. 7. The patient will be establishing appointment in 2 months for medication management. He can return if interventional treatments such as the ganglion impar blocks are necessary to control rectal pain. DO OMER Chicas/BREE/GERI By: [id number] Isra Petit DO /nt
[2021-05-10 08:31] VITALS: BP 133/79
--- NOTE | 2021-05-10 08:45 | NUR ---
Pain Clinic Assessment: 1. History of Osteoarthritis: DENIES History of Rheumatoid Arthritis: DENIES 2. Height: 6 ft. 1 in. 185.4 cm. Weight: 237.8 lb. oz. 107.866 kg. Patient's BMI: 31.4 3. Vital Signs: BP: 133/79 Pulse: 87 Resp: 16 Temp: 02 Sat: 98 ECG Mon: 4. Pain Intensity: 7 TO 8 5. Fall Risk: Dizziness: N Needs help standing or walking: N Fallen in the last 3 months: N Fall risk comments: 6. Patient on Blood Thinner: None 7. History of Hypertension: N 8. Opioid Therapy greater than 6 weeks: Y Opiate Contract Signed: 12/24/17 9. Risk Assessment Tool Provided: LOW RISK 0 10. Functional Assessment Tool: 11. Recreational Drug Use: Never Drug Type: Tobacco Use: Current Every Day Smoker Tobacco Type: Amount or Packs/day: 1 PK How Many Years: Alcohol Use: No Frequency: Quant:
== END ==
LOC: PAIN 06:56
PROVIDERS: ATTEND Anesthesiology Pain Medicine
DX: M53.3 Sacrococcygeal disorders, not elsewhere classified (principal); E66.01 Morbid (severe) obesity due to excess calories; G89.4 Chronic pain syndrome; Z79.891 Long term (current) use of opiate analgesic

== ENCOUNTER → 2021-07-12 | Outpatient (CLI) | payer OTHER ==
[~2021-07-12] VITALS: Ht 185.4 cm; Wt 113.9 kg
[2021-07-12 10:08] VITALS: BP 136/82
--- NOTE | 2021-07-12 10:09 | NUR ---
Pain Clinic Assessment: 1. History of Osteoarthritis: DENIES History of Rheumatoid Arthritis: DENIES 2. Height: 6 ft. 1 in. 185.4 cm. Weight: 251.0 lb. oz. 113.853 kg. Patient's BMI: 33.1 3. Vital Signs: BP: 136/82 Pulse: 92 Resp: 16 Temp: 02 Sat: 98 ECG Mon: 4. Pain Intensity: 7 5. Fall Risk: Dizziness: N Needs help standing or walking: N Fallen in the last 3 months: N Fall risk comments: 6. Patient on Blood Thinner: None 7. History of Hypertension: N 8. Opioid Therapy greater than 6 weeks: Y Opiate Contract Signed: 12/24/17 9. Risk Assessment Tool Provided: LOW RISK 0 10. Functional Assessment Tool: 11. Recreational Drug Use: Never Drug Type: Tobacco Use: Current Every Day Smoker Tobacco Type: Amount or Packs/day: How Many Years: Alcohol Use: No Frequency: Quant:
--- NOTE | 2021-07-13 16:21 | HPC ---
[facility] [address] [address] PAIN MANAGEMENT CONSULTATION Name: CRISTHIANGAYATRI Mason LEHMAN Room #: REG [facility]#: [id number] Admission: 07/12/21 Attend Phys: Peyton Ceballos Discharge: Date of : 78 Report #: [id number] THIS REPORT FOR: cc: NOHEMI FELTON Physician not on staff Peyton Ceballos ~ cc: Isra Polk DO, Jacye Ramos MD DATE OF SERVICE: 07/12/2021 CHIEF COMPLAINT: Coccydynia and rectal pain. HISTORY OF PRESENT ILLNESS: As you know, this is a longstanding patient of Dr. Petit in our clinic following this 40-year-old for continued tailbone pain and chronic coccydynia from previous surgery. He continues to take Hysingla on a daily basis and hydrocodone as needed. Today, he is reporting his pain score as 7/10. His pain fluctuates depending on his job. When he is climbing ladders and working on concrete, his pain has increased. Therefore, he does require more hydrocodone on Sundays than others, but he reports that the medication is adequate in dealing with his pain overall. He describes his pain as a chronic stabbing pain that is also relieved with heat and repositioning. His pain is mostly located in his tailbone, though he does have some ongoing issues in his abdomen from his hernia repairs in the past. Today, he is requesting renewal of his medications. The patient continues to have some marital issues that has caused significant stress as well for him. He reports he is currently going to a marriage counselor, may continue to work things out at home. He reports using meditation sitting in a dark room when his anxiety and stress get to high resulting from his marital issues. He did report that he was smoking quite heavily at our last visit, but has decreased his smoking since that time. ALLERGIES: No known drug allergies. CURRENT LIST OF MEDICATIONS: Hysingla 30 mg daily, hydrocodone 10/325 p.r.n. and probiotic. PQRS: 1. He denies any rheumatoid arthritis or osteoarthritis. 2. Height is 6 feet 1 inch, weight is 251. BMI is 33. 3. Vital signs 136/82, pulse is 92, respirations 16, oxygen sat is 98%. 4. Pain score 7/10. 5. Denies dizziness, does not need any help with ambulation or has not fallen in the last 3 months. 6. The patient is not on any blood thinners or medication for hypertension. 7. Opioid therapy is greater than 6 weeks; therefore, an opioid signed contract [place] [address] PAIN MANAGEMENT CONSULTATION Name: GAYATRI MONTES DE OCA JR Room #: REG [facility]#: [id number] Admission: 07/12/21 Attend Phys: Peyton Ceballos Discharge: Date of : 78 Report #: [id number] 8. Risk assessment is low. Functional assessment: . 9. Recreational drug use, he denies. He is a current cigarette smoker every day and denies any alcohol use. According to the prescription monitoring system, he is due to fill his hydrocodone, today; his Hysingla is due in a few weeks due to some insurance issues, he needed to go without it, but that has since been resolved. His morphine milliequivalents according to the CDC guidelines is 70 MME. There is a drug screen on the chart from his last visit. He did report being out of his medications for 4 days prior to this visit and his hydrocodone was negative. We will recheck this in the future when he is currently on his medication. The patient's nicotine use was quite high at that time. We did patient financial counselor the patient on this as well today. PHYSICAL EXAMINATION: GENERAL: This is a well-developed, well-nourished, well-hydrated 40-year-old gentleman who appears his stated age, played seeing his current pain score at 7/10 today. He is a good historian. HEENT: Normocephalic, atraumatic. Extraocular eye muscles are intact. He is wearing a mask. EXTREMITIES: No clubbing, no cyanosis, no edema. MUSCULOSKELETAL: He has tenderness over his sacral coccyx area. He has well-healed surgical scars. Pain is elicited when seated and with bending. He has a normal gait. IMPRESSION: 1. Chronic coccydynia. 2. Chronic rectal pain. 3. Opioid dependency. 4. Chronic intractable pain. 5. Complex medical management utilizing scheduled and opioid medications. 6. Tobacco habituation. We reviewed the fact that opiate medications are being used to provide analgesia adequate to support activities of daily living, not attempting to achieve a specific pain score on the 0-10 Visual Analog Scale. The current opiate medications are providing sufficient analgesia to allow the patient to participate in activities of daily living. The patient is not exhibiting any aberrant behavior suggestive of drug diversion. The patient is not having any adverse reactions to medications. The patient is not suffering from daytime somnolence or mental acuity changes. The patient is managing opiate-induced constipation with appropriate nfin-qki-pdjchrq agents and dietary considerations. The patient was counseled on concern for caution with operating a motor vehicle while using opiate medications. PLAN: [address] [address] PAIN MANAGEMENT CONSULTATION Name: GAYATRI MONTES DE OCA JR Room #: REG [facility]#: [id number] Admission: 07/12/21 Attend Phys: Peyton Ceballos Discharge: Date of : 78 Report #: [id number] 1. We discussed treatment options with the patient today. We did discuss his negative drug screen from his last visit. He had been out of his hydrocodone and Hysingla for at least 4 days. We also discussed his increase in tobacco use. He had a very stressful time at home with marital issues. I encouraged him to try and decrease his tobacco use, which he reports he has done since that time. We did discuss how to nicotine affects his pain in relation to each other. The patient will try to decrease further. 2. We did discuss ways to help alleviate stress other than smoking such as biofeedback, meditation in dark room, which he has been utilizing some during this stressful time at home. 3. We will continue him on his Hysingla 30 mg tablets once a day and hydrocodone 10/325 up to 4 times a day. Scripts will be sent electronically by Dr. Isra Petit for today and 4-week release. We did discuss taking the hydrocodone at the same time daily to keep blood levels elevated and help alleviate some of his pain. 4. The patient will return in 2 months for refill visit. 5. We did discuss Kratom. The patient states the people at work has been utilizing this yezo-kya-ncibuar medication. We discussed pros and cons and encouraged him not to utilize that supplement. Time spent with the patient in consultation, reviewing recent studies and clinical notes and physician reports, physical examination and correlation of physical findings and medical documentation to develop a treatment plan: 20 minutes. Time spent in preparation for appointment, reviewing prescription monitoring reports, reviewing previous records and proposed treatment options, reviewing current medications: 5 minutes. Time spent preparing and sending electronic prescriptions with collaborating physician, Dr. Isra Petit, documentation of visit and plan of treatment: 5 minutes. Total time spent: 30 minutes. <ELECTRONICALLY SIGNED> By: Peyton Ceballos 07/13/21 1621 [id number] Peyton Ceballos /nt
== END ==
LOC: PAIN 08:56
PROVIDERS: ATTEND Clinical Nurse Specialist Adult Health
DX: K62.89 Other specified diseases of anus and rectum (principal); G89.4 Chronic pain syndrome; Z79.891 Long term (current) use of opiate analgesic; Z79.899 Other long term (current) drug therapy

== ENCOUNTER → 2021-09-06 | Outpatient (CLI) | payer OTHER ==
[~2021-09-06] VITALS: Ht 185.4 cm; Wt 113.4 kg
--- NOTE | 2021-09-06 10:23 | NUR ---
Pain Clinic Assessment: 1. History of Osteoarthritis: DENIES History of Rheumatoid Arthritis: DENIES 2. Height: ft. in. cm. Weight: lb. oz. kg. Patient's BMI: 3. Vital Signs: BP: Pulse: Resp: Temp: 02 Sat: ECG Mon: 4. Pain Intensity: 6 5. Fall Risk: Dizziness: N Needs help standing or walking: N Fallen in the last 3 months: N Fall risk comments: 6. Patient on Blood Thinner: None 7. History of Hypertension: N 8. Opioid Therapy greater than 6 weeks: Y Opiate Contract Signed: 12/24/17 9. Risk Assessment Tool Provided: LOW RISK 0 10. Functional Assessment Tool: 11. Recreational Drug Use: Never Drug Type: Tobacco Use: Current Every Day Smoker Tobacco Type: Amount or Packs/day: How Many Years: Alcohol Use: No Frequency: Quant:
[2021-09-06 10:28] VITALS: BP 136/89
--- NOTE | 2021-09-06 11:06 | NUR ---
Pain Clinic Assessment: 1. History of Osteoarthritis: DENIES History of Rheumatoid Arthritis: DENIES 2. Height: 6 ft. 1 in. 185.4 cm. Weight: 250.0 lb. oz. 113.400 kg. Patient's BMI: 33.0 3. Vital Signs: BP: 136/89 Pulse: 92 Resp: 14 Temp: 02 Sat: 97 ECG Mon: 4. Pain Intensity: 6 5. Fall Risk: Dizziness: N Needs help standing or walking: N Fallen in the last 3 months: N Fall risk comments: 6. Patient on Blood Thinner: None 7. History of Hypertension: N 8. Opioid Therapy greater than 6 weeks: Y Opiate Contract Signed: 12/24/17 9. Risk Assessment Tool Provided: LOW RISK 0 10. Functional Assessment Tool: 11. Recreational Drug Use: Never Drug Type: Tobacco Use: Current Every Day Smoker Tobacco Type: Amount or Packs/day: How Many Years: Alcohol Use: No Frequency: Quant:
--- NOTE | 2021-09-07 10:01 | HPC ---
[facility] [address] [place] [address] PAIN MANAGEMENT CONSULTATION Name: GAYATRI MONTES DE OCA JR Room #: REG [facility]#: [id number] Admission: 09/06/21 Attend Phys: Peyton Ceballos Discharge: Date of : 78 Report #: [id number] THIS REPORT FOR: cc: NOHEMI FELTON Physician not on staff Peyton Ceballos ~ cc: Isra Petit DO, DATE OF SERVICE: 09/06/2021 CHIEF COMPLAINT: Coccydynia and rectal pain. HISTORY OF PRESENT ILLNESS: As you know, this is a pleasant 41-year-old gentleman who returns to the pain clinic today for renewal of his pain medication. Today, he is reporting a pain score of 6/10, mostly located in his tailbone area, but he is again having issues with hernia, so does have some abdominal pain as well. He reports that his pain is worse with activity, especially ladders and stairs at work. Thankfully, he is currently working on a job that does not require those strenuous activity and he reports having less pain at work these days. He is scheduled for a hernia repair on 10/[address] Ochoa. He is aware that he will need to decrease his medicines as he has done in the past for his hernia repair. He is hopeful that it will not be as extensive. They are using da Bertin robot, he reports this time for this repair. He states that he would like to continue his Hysingla and hydrocodone. He is also wondering if the injection tanezumab is on the market yet. ALLERGIES: No known drug allergies. CURRENT LIST OF MEDICATIONS: Hydrocodone 10/325 p.r.n., Hysingla 30 mg tablets daily and lactobacillus. PQRS: 1. He denies any osteoarthritis or rheumatoid arthritis. Height is 6 feet 1 inch, weight was 252. BMI is 33. 2. Vital signs: Blood pressure 136/89, pulse is 92, respirations 14, oxygen sat is 97%. Pain score 6/10. 3. Fall risk, denies dizziness, does not need help with walking or has not fallen in the last 3 months. He is not on any blood thinners or medication for hypertension. His opioid therapy is greater than 6 weeks; therefore, an opioid signed contract is on the chart. 4. Risk assessment is low. Functional assessment is 28/70. 5. Recreational drug use, he denies. He is a current smoker and does not drink alcohol. According to the prescription monitoring system, he is filling appropriately and due to fill his medications this week. His morphine milliequivalent is 70 MME. There is a recent drug screen on the chart. [address] [address] PAIN MANAGEMENT CONSULTATION Name: GAYATRI MONTES DE OCA JR Room #: REG [facility]#: [id number] Admission: 09/06/21 Attend Phys: Peyton Ceballos Discharge: Date of : 79 Report #: [id number] PHYSICAL EXAMINATION: GENERAL: This is a well-developed, well-nourished, well-hydrated 41-year-old gentleman who appears his stated age, rating his pain score today at 6/10. HEENT: Normocephalic, atraumatic. Pupils equal, round and reactive to light. He is wearing a mask for COVID precautions. EXTREMITIES: No clubbing, no cyanosis, no edema. MUSCULOSKELETAL: He has tenderness to palpation over his coccyx area and his ongoing issue is in his abdominal area from a hernia repair, mostly centered in the right lower quadrant. He has a normal gait. IMPRESSION: 1. Chronic coccydynia. 2. Chronic rectal pain. 3. Opioid dependency. 4. Chronic intractable pain, utilizing scheduled opioid medications. We reviewed the fact that opiate medications are being used to provide analgesia adequate to support activities of daily living, not attempting to achieve a specific pain score on the 0-10 Visual Analog Scale. The current opiate medications are providing sufficient analgesia to allow the patient to participate in activities of daily living. The patient is not exhibiting any aberrant behavior suggestive of drug diversion. The patient is not having any adverse reactions to medications. The patient is not suffering from daytime somnolence or mental acuity changes. The patient is managing opiate-induced constipation with appropriate ecgc-aml-gtvjihp agents and dietary considerations. The patient was counseled on concern for caution with operating a motor vehicle while using opiate medications. PLAN: 1. We discussed treatment options with the patient today. He is scheduled for an upcoming hernia repair and revision on 10/[address] Ochoa. We did encourage him to decrease his short-acting medications to 3 times a day, then decrease to 2 times a day and hopefully 1 tablet a day max several days prior to surgery, but to continue his Hysingla on a daily basis. Postoperatively, then he may have several additional medications to use in the initial phase. I have also explained if Dr. Ochoa does give him a short script of oxycodone that he is allowed to take it, but to call our office and notify us. Hopefully he will be able to only take the hydrocodone at an increased rate postoperatively and then slowly decrease back to his normal dose. The patient verbalizes understanding and he does remember doing that in previous surgery last year. Scripts given for hydrocodone 10325, #120 for today and 4-week release as well as his Hysingla ER 30 mg tablets, #30 for today and 4-week release by Dr. Isra Petit. He will send these electronically. 2. Again, we did discuss tanezumab, which is an injection that he is hopeful to have to decrease his opioid intake. Unfortunately, it is still not on the [facility] [address] [place] [address] PAIN MANAGEMENT CONSULTATION Name: GAYATRI MONTES DE OCA JR [id number] Admission: 09/06/21 Attend Phys: Peyton Ceballos Discharge: Date of : 78 Report #: [id number] market. I will notify the patient if it does become available. Time spent with the patient in consultation, reviewing recent studies and clinical notes and physician reports, physical examination and correlation of findings and medical documentation to determine possible treatment options 15 minutes. Time spent in preparation for appointment, reviewing prescription monitoring system reports, reviewing previous records and treatment options and reviewing current medications 5 minutes. Time spent preparing and sending electronic prescriptions with collaborating physician, Dr. Isra Petit and documentation of visit and plan of treatment 5 minutes. Total time spent 25 minutes. <ELECTRONICALLY SIGNED> By: Peyton Ceballos 09/07/21 1001 1025 1533 Peyton Ceballos /linn
== END ==
LOC: PAIN 07:02
PROVIDERS: ATTEND Clinical Nurse Specialist Adult Health
DX: G89.29 Other chronic pain (principal); M53.3 Sacrococcygeal disorders, not elsewhere classified; K62.89 Other specified diseases of anus and rectum; F11.20 Opioid dependence, uncomplicated

== ENCOUNTER → 2021-11-01 | Outpatient (CLI) | payer OTHER ==
[~2021-11-01] VITALS: Ht 185.4 cm; Wt 116.8 kg
[2021-11-01 09:24] VITALS: BP 134/94
--- NOTE | 2021-11-01 09:34 | NUR ---
Pain Clinic Assessment: 1. History of Osteoarthritis: DENIES History of Rheumatoid Arthritis: DENIES 2. Height: 6 ft. 1 in. 185.4 cm. Weight: 257.6 lb. oz. 116.847 kg. Patient's BMI: 34.9 3. Vital Signs: BP: 134/94 Pulse: 82 Resp: 16 Temp: 02 Sat: 97 ECG Mon: 4. Pain Intensity: 7-8 5. Fall Risk: Dizziness: N Needs help standing or walking: N Fallen in the last 3 months: N Fall risk comments: 6. Patient on Blood Thinner: None 7. History of Hypertension: N 8. Opioid Therapy greater than 6 weeks: Y Opiate Contract Signed: 12/24/17 9. Risk Assessment Tool Provided: LOW RISK 0 10. Functional Assessment Tool: 11. Recreational Drug Use: Never Drug Type: Tobacco Use: Current Every Day Smoker Tobacco Type: Amount or Packs/day: How Many Years: Alcohol Use: No Frequency: Quant:
--- NOTE | 2021-11-02 13:57 | HPC ---
[facility] [address] [address] PAIN MANAGEMENT CONSULTATION Name: TAVONGAYATRI Mason LEHMAN Room #: REG [facility]#: [id number] Admission: 11/01/21 Attend Phys: Peyton Ceballos Discharge: Date of : 78 Report #: [id number] THIS REPORT FOR: cc: NOHEMI FELTON Physician not on staff Peyton Ceballos ~ cc: Isra Petit DO, Laurie Tutton DATE OF SERVICE: 11/01/2021 CHIEF COMPLAINT: Coccydynia and rectal pain. HISTORY OF PRESENT ILLNESS: This is a pleasant 41-year-old gentleman who returns to the pain clinic today for renewal of his medications. Unfortunately, the patient is reporting today that he did not undergo surgery in September with Dr. Ochoa as previously was scheduled. Evidently, the day before surgery, the hospital required him to pay a significant amount of money, which the patient was not able to gather in one day. Therefore, he did cancel his surgery and has just been continued to work. The patient reports today that his tailbone is the most problematic area. He states that it is worse with walking, especially bending over, using ladders and significant activity, which is all required with his job. Overall, he believes the medication as well as rest, repositioning and using heat after he works all day has been beneficial. He describes his pain as a stabbing sensation over 7-8/10. He denies any significant constipation or somnolence as a result of his opioid medications. ALLERGIES: No known drug allergies. CURRENT LIST OF MEDICATIONS: Hydrocodone 10/325 p.r.n., Hysingla ER 30 mg daily and lactobacillus p.r.n. PQRS: 1. He denies osteoarthritis or rheumatoid arthritis. He is 6 feet 1 inch, 257 pounds, BMI is 34. 2. Vital signs, blood pressure 134/94, pulse is 82, respirations 16, oxygen sat is 97%. 3. Pain score 7-8. 4. Denies dizziness, does not need help walking or standing, has not fallen in the last 3 months. The patient is not on any blood thinners or does not take medicine for hypertension. His opioid therapy is greater than 6 weeks; therefore, an opioid signed contract is on the chart. 5. Risk assessment is low. Functional assessment is 20/70. 6. Recreational drug use, he denies. He currently smokes and does not drink alcohol. According to the prescription monitoring system, the patient is filling appropriately in a timely fashion. His morphine mEq is 70 MME; therefore, [place] [address] PAIN MANAGEMENT CONSULTATION Name: GAYATRI MONTES DE OCA JR Room #: REG [facility]#: [id number] Admission: 11/01/21 Attend Phys: Peyton Ceballos Discharge: Date of : 78 Report #: [id number] required to return every 2 months. There is an opioid urine drug screen on the chart. PHYSICAL EXAMINATION: GENERAL: This is alert and orientated, well-developed, well-hydrated 41-year-old gentleman who appears his stated age, rating his pain score at 7-8/10 today. HEENT: Normocephalic, atraumatic. Extraocular eye muscles are intact. He is wearing a mask for COVID regulation compliance. EXTREMITIES: No clubbing, no cyanosis, no edema. MUSCULOSKELETAL: The patient has tenderness over his coccyx region. Well-healed scars are noted. Seated straight leg raising is negative. Pain is elicited with sitting, standing and improved with lying down. His lower extremity strength is symmetrical. He does have tenderness in his abdominal hernias that he has had repaired that have returned. ASSESSMENT: 1. Chronic coccydynia. 2. Chronic rectal pain. 3. Complicated medical management utilizing scheduled opioid medications. 4. Opioid dependency. 5. Chronic intractable pain. We reviewed the fact that opiate medications are being used to provide analgesia adequate to support activities of daily living, not attempting to achieve a specific pain score on the 0-10 Visual Analog Scale. The current opiate medications are providing sufficient analgesia to allow the patient to participate in activities of daily living. The patient is not exhibiting any aberrant behavior suggestive of drug diversion. The patient is not having any adverse reactions to medications. The patient is not suffering from daytime somnolence or mental acuity changes. The patient is managing opiate-induced constipation with appropriate ahtv-nrk-zlpabmi agents and dietary considerations. The patient was counseled on concern for caution with operating a motor vehicle while using opiate medications. PLAN: 1. We discussed treatment options with the patient today. The patient believes that medications are beneficial in helping alleviate a significant portion of his pain and allow him to be as active as he is when he is at work and also while at home with very minimal side effects. We will continue his Hysingla 30 mg tablets once a day. Script sent electronically by Dr. Petit for 2 months as well as his hydrocodone 10/325 #120 for 2 additional months as well. 2. Unfortunately, the patient was not able to have his abdominal hernia repair performed in September. I encouraged him to discuss with the physician. If he does operate in the outpatient surgical setting then that may be more beneficial for him without the large copay the hospital was requiring. [address] [address] PAIN MANAGEMENT CONSULTATION Name: GAYATRI MONTES DE OCA JR Room #: REG [facility]#: [id number] Admission: 11/01/21 Attend Phys: Peyton Ceballos Discharge: Date of : 78 Report #: [id number] 3. The patient will return in 2 months for medication management. At that time, we may collect an another random drug screen on him. Time spent on patient in consultation, reviewing recent studies and clinical notes and physician reports, physical examination and correlation of findings and medical documentation to determine possible treatments 11 minutes. Time spent in preparation for appointment, reviewing prescription monitoring system reports, reviewing previous records and treatment options and reviewing current medications, 5 minutes. Time spent preparing and sending electronic prescriptions with collaborating physician, Dr. Isra Petit, documentation of visit and plan of treatment 5 minutes. Total time spent 22 minutes. <ELECTRONICALLY SIGNED> By: Peyton Ceballos 11/02/21 1357 1316 [id number] Peyton Ceballos /linn
== END ==
LOC: PAIN 06:56
PROVIDERS: ATTEND Clinical Nurse Specialist Adult Health
DX: K62.89 Other specified diseases of anus and rectum (principal); M53.3 Sacrococcygeal disorders, not elsewhere classified; G89.29 Other chronic pain; Z79.899 Other long term (current) drug therapy

== ENCOUNTER → 2022-01-02 | Outpatient (CLI) | payer OTHER ==
[~2022-01-02] VITALS: Ht 185.4 cm; Wt 112.6 kg
[2022-01-02 08:49] VITALS: BP 124/65
--- NOTE | 2022-01-02 09:02 | NUR ---
Pain Clinic Assessment: 1. History of Osteoarthritis: DENIES History of Rheumatoid Arthritis: DENIES 2. Height: 6 ft. 1 in. 185.4 cm. Weight: 248.2 lb. oz. 112.583 kg. Patient's BMI: 32.8 3. Vital Signs: BP: 124/65 Pulse: 87 Resp: 14 Temp: 02 Sat: 97 ECG Mon: 4. Pain Intensity: 5-6 5. Fall Risk: Dizziness: N Needs help standing or walking: N Fallen in the last 3 months: N Fall risk comments: 6. Patient on Blood Thinner: None 7. History of Hypertension: N 8. Opioid Therapy greater than 6 weeks: Y Opiate Contract Signed: 12/24/17 9. Risk Assessment Tool Provided: LOW RISK 0 10. Functional Assessment Tool: 11. Recreational Drug Use: Never Drug Type: Tobacco Use: Current Every Day Smoker Tobacco Type: Cigarettes Amount or Packs/day: 1 pack How Many Years: 25 Alcohol Use: No Frequency: Quant:
== END ==
LOC: PAIN 06:50
PROVIDERS: ATTEND Clinical Nurse Specialist Adult Health
DX: G89.29 Other chronic pain (principal); M53.3 Sacrococcygeal disorders, not elsewhere classified; F11.20 Opioid dependence, uncomplicated; K62.89 Other specified diseases of anus and rectum; Z79.899 Other long term (current) drug therapy